=== PATIENT | male | born 1975 | race Caucasian/White ===

== ENCOUNTER 2020-11-08 14:37 | Outpatient (REF) | payer OTHER, SELFPAY | END 2020-11-08 14:38 | disposition home or self-care (01) | LOC: HO.HMGCLDS 14:37 | PROVIDERS: PCP Nurse Practitioner Family; Visit Provider Internal Medicine | DX: Z20.822 Contact with and (suspected) exposure to COVID-19 (principal) | CPT/HCPCS: 36415; C9803; U0003 ==

== ENCOUNTER 2021-05-06 14:00 | Outpatient (REF) | payer OTHER, SELFPAY ==
--- NOTE | ~2021-05-06 | XR_ITS ---
EXAMINATION: XR CHEST CLINICAL INFORMATION: Cough. COMPARISON: Chest 10/03/2019 TECHNIQUE: 2 views of the chest were obtained. FINDINGS: The lungs are hyperinflated but clear of acute pneumonic process. Heart size and pulmonary vascularity is normal. No gross bony abnormality seen. There are spinal stimulators in the mid thoracic spinal canal. XR/XR chest 2V IMPRESSION: Hyperinflated lungs without acute pneumonic process. No change from 10/03/2019.
== END 2021-05-06 14:01 | disposition home or self-care (01) ==
LOC: HO.HMGCX 14:00
PROVIDERS: PCP Nurse Practitioner Family; Visit Provider Nurse Practitioner Family
DX: R05 Cough (principal)
CPT/HCPCS: 71046

== ENCOUNTER 2021-05-20 | Outpatient (REF) | payer OTHER, SELFPAY | END 2021-05-20 00:01 | disposition home or self-care (01) | LOC: HO.LNP | PROVIDERS: Visit Provider Nurse Practitioner Family | DX: N48.9 Disorder of penis, unspecified (principal) | CPT/HCPCS: 87071; 87205; 87255 ==

== ENCOUNTER 2021-05-21 14:02 | Outpatient (REF) | payer OTHER, SELFPAY ==
[2021-05-21 17:04] LABS: Alanine Aminotransferase 18 U/L (0-40); Albumin Level 4.8 g/dL (3.5-5.0); Alkaline Phosphatase 63 U/L (39-117); Anion Gap 15 (12-20); Aspartate Amino Transferase 27 U/L (5-37); Bilirubin Total 0.4 mg/dL (0.0-1.0); Blood Urea Nitrogen 16 mg/dL (9-16); Calcium 9.6 mg/dL (8.4-10.2); Carbon Dioxide 26 mmol/L (22-29); Chloride 108 mmol/L (96-108); Cholesterol 170 mg/dL; Estimated Glomerular Filt Rate > 60; Glucose Fasting 120 mg/dL (60-99); HDL Cholesterol 67 mg/dL; LDL Cholesterol Calculated 95 mg/dl; Potassium 4.5 mmol/L (3.3-5.1); Sodium 144 mmol/L (135-145); Total Protein 7.6 g/dL (6.5-8.0); Triglycerides 43 mg/dL
[2021-05-21 17:26] LABS: TSH reflex Free T4 0.78 uIU/mL (0.32-4.0)
[2021-05-22 08:10] LABS: Syphilis Screen Nonreactive (Nonreactive)
[2021-05-22 09:07] LABS: CT PCR NOT DETECTED (Not Detect.); NG PCR NOT DETECTED (Not Detect.)
[2021-05-23 06:35] LABS: Herpes Simplex Type 1 IgG 3.15 index; Herpes Simplex Type 2 IgG 1.07 index
== END 2021-05-21 14:03 | disposition home or self-care (01) ==
LOC: HO.HMGCLDS 14:02
PROVIDERS: PCP Nurse Practitioner Family; Visit Provider Nurse Practitioner Family
DX: Z00.00 Encounter for general adult medical examination without abnormal findings (principal); Z11.3 Encounter for screening for infections with a predominantly sexual mode of transmission; N48.9 Disorder of penis, unspecified
CPT/HCPCS: 80053; 80061; 84443; 86695; 86696; 86780; 87491; 87591

== ENCOUNTER 2021-06-24 15:36 | Outpatient (REF) | payer OTHER, SELFPAY ==
--- NOTE | ~2021-06-24 | XR_ITS ---
EXAMINATION: XR FOOT, RIGHT CLINICAL INFORMATION: Foot pain. COMPARISON: None. TECHNIQUE: AP, lateral, and oblique views of the right foot. FINDINGS: [id number] 1st MTP arthritis. There are 2 calcifications/ossifications each measuring 8 mm in length, along the dorsal aspect of the distal metatarsals on the lateral projection, probably projected over the 1st metatarsal, which have a chronic appearance. There is a sclerotic focus in the 1st phalanx, nonspecific. This could represent a bone island. No visible acute fracture or dislocation. Tarsometatarsal alignment is within normal limits. XR/XR foot RT min 3V IMPRESSION: No radiographic evidence of acute fracture. Cmrq-gf-[id number] 1st MTP arthritis. Chronic-appearing ossification/calcifications in the dorsal forefoot, probably projected over the distal 1st metatarsal.
== END 2021-06-24 15:37 | disposition home or self-care (01) ==
LOC: HO.HMGCX 15:36
PROVIDERS: PCP Nurse Practitioner Family; Visit Provider Hospitalist
DX: Z13.89 Encounter for screening for other disorder (principal)
CPT/HCPCS: 73630

== ENCOUNTER 2022-01-23 14:14 | Outpatient (REF) | payer OTHER, SELFPAY ==
[2022-01-23 14:50] LABS: MANUAL DIFF FLAG NO
[2022-01-23 15:05] LABS: Basophils Absolute Auto 0.1 X10*3/uL (0.0-0.2); Eosinophils Absolute Auto 0.1 X10*3/uL (0.0-0.4); Eosinophils Percent Auto 1.6 % (0-4); Hematocrit 40.8 % (42.0-52.0); Imm Gran Abs Auto 0.01 X10*3/uL (0.00-0.03); Imm Gran Pct Auto 0.2 % (0.0-0.4); Lymphocytes Absolute Auto 1.7 X10*3/uL (1.2-4.9); Lymphocytes Percent Auto 34.6 % (20-40); Mean Corpuscular HGB Conc 34.3 g/dl (31.0-36.0); Mean Corpuscular Hemoglobin 32.7 pg (27.0-33.0); Mean Corpuscular Volume 95.3 fL (80.0-98.0); Mean Platelet Volume 10.5 fL (9.4-12.4); Monocytes Absolute Auto 0.3 X10*3/uL (0.1-1.2); Monocytes Percent Auto 6.7 % (2-11); Neutrophils Absolute Auto 2.8 x10*3/uL (2.0-8.3); Neutrophils Percent Auto 55.9 % (45-73); Platelet Count 188 X10*3/uL (160-400); Red Blood Count 4.28 X10*6/uL (4.60-5.80); Red Cell Distribution Width 12.7 % (11.0-16.0); White Blood Count 4.9 X10*3/uL (4.8-10.8)
[2022-01-23 15:46] LABS: Erythrocyte Sedimentation Rate 2 MM/HR (0-15)
[2022-01-23 15:50] LABS: Alanine Aminotransferase 27 U/L (0-40); Albumin Level 4.5 g/dL (3.5-5.0); Alkaline Phosphatase 60 U/L (39-117); Anion Gap 8 (12-20); Aspartate Amino Transferase 26 U/L (5-37); Bilirubin Total 0.8 mg/dL (0.0-1.0); Blood Urea Nitrogen 15 mg/dL (9-16); C Reactive Protein 0.08 mg/dL (< or = 0.50); Calcium 9.7 mg/dL (8.4-10.2); Carbon Dioxide 31 mmol/L (22-29); Chloride 102 mmol/L (96-108); Estimated Glomerular Filt Rate > 60; Glucose Random 83 mg/dL (60-115); Potassium 4.3 mmol/L (3.3-5.1); Sodium 137 mmol/L (135-145); Total Protein 7.1 g/dL (6.5-8.0)
[2022-01-24 08:01] LABS: HBc Num1 0.16 S/CO (0.00-0.79); HBsAGNum1 0.24 S/CO (0.00-0.99); HIV AB/AG Nonreactive (Nonreactive); HIV Num 1 0.06 S/CO (0.00-0.99); Hepatitis A Antibody IgM 0.26 Index (0-0.79); Hepatitis B Core Antibody Nonreactive (Nonreactive); Hepatitis B Surface Antigen Negative (Negative); ~Hepatitis A Antibody IgM Nonreactive (Nonreactive)
[2022-01-24 08:12] LABS: HBS Num1 11.49 mIU/mL (0-7.99); ~HepC Num1 0.17 S/CO (0.00-0.79); ~Hepatitis C Antibody Nonreactive (Nonreactive)
[2022-01-24 09:03] LABS: HBS Num2 11.83 mIU/mL (0-7.99); HBS Num3 10.65 mIU/mL (0-7.99); ~Hepatitis B Surface Antibody GRAYZONE (Nonreactive)
== END 2022-01-23 14:15 | disposition home or self-care (01) ==
LOC: HO.LAB 14:14
PROVIDERS: PCP Nurse Practitioner Family; Visit Provider Nurse Practitioner Family
DX: Z01.84 Encounter for antibody response examination (principal); Z11.4 Encounter for screening for human immunodeficiency virus [HIV]; R63.4 Abnormal weight loss
CPT/HCPCS: 36415; 80053; 85025; 85652; 86140; 86704; 86706; 86709; 86803; 87340; 87389

== ENCOUNTER 2022-04-04 20:49 | Emergency (ER) | payer OTHER, SELFPAY ==
[2022-04-04 21:26] VITALS: BP 147/96; PULSE 80; RESP 20; TEMP 37; O2SAT 98; BMI 21.1
--- NOTE | 2022-04-04 21:29 | ECG_ITS ---
Test Reason : CHEST PAIN Blood Pressure : / mmHG Vent. Rate : 079 BPM Atrial Rate : 079 BPM P-R Int : 138 ms QRS Dur : 136 ms QT Int : 400 ms P-R-T Axes : 080 114 056 degrees QTc Int : 458 ms Normal sinus rhythm Right bundle branch block Left posterior fascicular block Bifascicular block Abnormal ECG When compared with ECG of 03-OCT-2019 18:24, QT has shortened Referred By: Generic ED Physician Electronically Signed By:MICKY ROONEY
[2022-04-04 21:43] LABS: MANUAL DIFF FLAG NO
[2022-04-04 21:44] LABS: Basophils Percent Auto 0.4 % (0-2); Eosinophils Percent Auto 0.2 % (0-4); Hematocrit 42.4 % (42.0-52.0); Hemoglobin 14.5 g/dl (14.0-18.0); Imm Gran Abs Auto 0.03 X10*3/uL (0.00-0.03); Imm Gran Pct Auto 0.3 % (0.0-0.4); Lymphocytes Absolute Auto 1.4 X10*3/uL (1.2-4.9); Lymphocytes Percent Auto 15.6 % (20-40); Mean Corpuscular HGB Conc 34.2 g/dl (31.0-36.0); Mean Corpuscular Hemoglobin 31.6 pg (27.0-33.0); Mean Corpuscular Volume 92.4 fL (80.0-98.0); Mean Platelet Volume 9.8 fL (9.4-12.4); Monocytes Absolute Auto 0.5 X10*3/uL (0.1-1.2); Monocytes Percent Auto 5.7 % (2-11); Neutrophils Absolute Auto 7.1 x10*3/uL (2.0-8.3); Neutrophils Percent Auto 77.8 % (45-73); Platelet Count 309 X10*3/uL (160-400); Red Blood Count 4.59 X10*6/uL (4.60-5.80); Red Cell Distribution Width 12.4 % (11.0-16.0); White Blood Count 9.1 X10*3/uL (4.8-10.8)
[2022-04-04 21:57] LABS: Anion Gap 15 (12-20); Blood Urea Nitrogen 13 mg/dL (9-16); Calcium 9.9 mg/dL (8.4-10.2); Carbon Dioxide 28 mmol/L (22-29); Chloride 97 mmol/L (96-108); Creatinine Clr Calc Pharmacy 98.4; Estimated Glomerular Filt Rate > 60; Glucose Random 97 mg/dL (60-115); Sodium 136 mmol/L (135-145)
[2022-04-04 22:03] LABS: Troponin-I High Sensitivity 4.1 ng/L (<3.5-35.0)
[2022-04-04 22:16] LABS: COVID-19 Test Negative (Negative); IDNOW Serial# 55D5AD1C
--- NOTE | 2022-04-05 00:44 | PC.NURSE ---
Patient called x 5 total and patient not present.
== END 2022-04-05 01:13 | disposition left against medical advice (07) ==
PROVIDERS: Emergency Medicine Emergency Medical Services; Emergency Provider Emergency Medicine; PCP Nurse Practitioner Family
DX: R07.9 Chest pain, unspecified (principal); Z20.822 Contact with and (suspected) exposure to COVID-19
CPT/HCPCS: 36415; 80048; 84484; 85025; 87635; 93005; 99282; 99284

== ENCOUNTER 2022-05-05 14:39 | Outpatient (REF) | payer OTHER, SELFPAY | END 2022-05-05 14:40 | disposition home or self-care (01) | LOC: HO.CT 14:39 | PROVIDERS: PCP Nurse Practitioner Family; Visit Provider Internal Medicine Medical Oncology | DX: Z13.89 Encounter for screening for other disorder (principal) ==

== ENCOUNTER 2022-05-08 09:15 | Outpatient (REF) | payer OTHER, SELFPAY ==
--- NOTE | ~2022-05-08 | CT_ITS ---
EXAMINATION: CT CHEST WITH CONTRAST CLINICAL INFORMATION: Enlarged lymph node. COMPARISON: None TECHNIQUE: Multidetector volumetric CT imaging of the chest was obtained after the administration of 50 mL of Omnipaque 350 intravenous contrast without immediate adverse reactions. Axial MIP volume rendering provided. Sagittal and coronal reformatted images were obtained. This CT examination was performed using dose optimization techniques as appropriate, variously including the following: *Automated exposure control *Adjustment of mA and/or kV according to patient size (this includes techniques or standardized protocols for targeted exams where dose is matched to indication/reason for exam; i.e. extremities or head) *Use of iterative reconstruction technique DLP: 437 mGy-cm FINDINGS: SKID MAN: The lungs are symmetrically well-expanded and grossly clear. A spinal stimulator device is noted. LUNGS: There is mild lingular scar/subsegmental atelectasis. The lungs are otherwise clear with no evidence of inflammation or nodules. MEDIASTINUM: In the precarinal region (3:28), there is a nonpathologically enlarged lymph node, with short axis diameter of 7 mm. In the right hilar region (3:32), there is a 1.4 x 1.1 cm mildly enlarged lymph node. In the left hilar region (3:36), a nonpathologically enlarged lymph node is seen, with short axis diameter of 5 cm. No left hilar lymphadenopathy is seen. There is no thoracic aortic aneurysm or dissection. PLEURA: There is no pleural effusion. No pleural mass or thickening. AXILLA: No lymphadenopathy. OSSEOUS STRUCTURES: No acute or aggressive osseous abnormality is seen. CT/CT chest w con IMPRESSION: There is a nonspecific mildly enlarged right hilar lymph node. This could be secondary to infectious, inflammatory or neoplastic etiologies. This should be managed on a clinical basis. Consider follow-up CT imaging in 3-6 months to ensure stability/regression. Fleischner guidelines were followed.
--- NOTE | ~2022-05-08 | CT_ITS ---
EXAMINATION: CT ABDOMEN AND PELVIS WITH CONTRAST CLINICAL INFORMATION: Enlarged lymph node. COMPARISON: None TECHNIQUE: Multidetector volumetric images were obtained from the superior aspect of the liver through the pubic symphysis following administration 85 mL of Omnipaque 350 intravenous contrast. Sagittal and coronal reformatted images were obtained on the technologist's workstation. Oral contrast: No This CT examination was performed using dose optimization techniques as appropriate, variously including the following: *Automated exposure control *Adjustment of mA and/or kV according to patient size (this includes techniques or standardized protocols for targeted exams where dose is matched to indication/reason for exam; i.e. extremities or head) *Use of iterative reconstruction technique DLP: 437 mGy-cm FINDINGS: LIVER, GALLBLADDER, AND BILIARY TREE: The liver is normal in size, shape, and attenuation. No focal hepatic lesion or biliary ductal dilatation is present. The gallbladder is unremarkable with no evidence of radiopaque gallstones, gallbladder wall thickening, or obvious pericholecystic inflammatory changes. PANCREAS: Unremarkable. SPLEEN: Unremarkable. ADRENAL GLANDS: Unremarkable. KIDNEYS AND URETERS: The kidneys are normal in size, shape, and attenuation. No hydronephrosis, hydroureter, or calculi seen. At the upper pole of the right kidney (6:167), a 7 mm fat density lipoma is seen. No perinephric stranding. BLADDER: Unremarkable. GASTROINTESTINAL TRACT: The small and large bowel are unremarkable. The appendix is unremarkable. ABDOMINAL WALL: There is a very small fat-containing left inguinal hernia. LYMPH NODES: Normal. VASCULAR: There is mild aortoiliac atherosclerotic calcifications. No abdominal aortic aneurysm or dissection is seen. PELVIC VISCERA: The prostate and seminal vesicles are unremarkable. OSSEOUS STRUCTURES: There is a moderate lumbar levoscoliosis. There is degenerative disc disease and spondylosis extending from L2-L3 through L4-L5. There is a rightward L5 spondylolysis defect. No acute or aggressive osseous abnormality is seen. CT/CT abdomen pelvis w con IMPRESSION: 1. A 7 mm fat density lipoma is incidentally noted at the upper pole of the right kidney, new from prior. 2. There is a very small fat-containing left inguinal hernia. 3. No lymphadenopathy is seen. There is no ascites. 4. There is lumbar degenerative disc disease. A rightward L5 spondylolysis defect is seen. Fleischner guidelines were followed.
[2022-05-08] MEDS: iohexoL 350 MG/ML 100 ML INFUS..BTL 85 ML IV (12:02)
[2022-05-08] MEDS: Barium Sulfate Oral (Vanilla) 450 ML ORAL.SUSP 900 ML PO (12:02)
== END 2022-05-08 09:16 | disposition home or self-care (01) ==
LOC: HO.CT 09:15
PROVIDERS: PCP Nurse Practitioner Family; Visit Provider Internal Medicine Medical Oncology
DX: R59.1 Generalized enlarged lymph nodes (principal); R59.0 Localized enlarged lymph nodes
CPT/HCPCS: 71260; 74177; Q9967

== ENCOUNTER 2022-09-29 07:48 | Outpatient (REF) | payer OTHER, SELFPAY ==
--- NOTE | ~2022-09-29 | XR_ITS ---
EXAMINATION: XR HIP, BILATERAL CLINICAL INFORMATION: Pain. COMPARISON: CT abdomen of 05/08/2022. TECHNIQUE: AP pelvis and 2 views of each hip. FINDINGS: AP film of the pelvis does not demonstrate any evidence of acute fracture or diastasis. No evidence of fusion or widening of the sacroiliac joints. There appears to be some narrowing of the right sacroiliac joint with some mild sclerosis. Wires from a nerve stimulator are seen traversing superiorly. There is degenerative disc disease seen L4 through S1 with spina bifida occulta at L5 with appearance of right-sided spondylolysis. Two views of the right hip do not demonstrate any evidence of acute fracture or dislocation. Hip joint space is maintained. No flattening of the femoral head is seen. There is a small amount of calcification seen about the superior labrum. Two views of the left hip do not demonstrate any evidence of acute fracture or dislocation. Hip joint space is maintained. No significant spurring is appreciated. No destructive bony lesions are seen. Numerous sclerotic lesions are seen about the femoral head and neck consistent with bone islands. XR/XR hip LT min 2V IMPRESSION: Degenerative disc disease L4 through S1, as described. No significant hip abnormalities appreciated.
--- NOTE | ~2022-09-29 | XR_ITS ---
EXAMINATION: XR HIP, BILATERAL CLINICAL INFORMATION: Pain. COMPARISON: CT abdomen of 05/08/2022. TECHNIQUE: AP pelvis and 2 views of each hip. FINDINGS: AP film of the pelvis does not demonstrate any evidence of acute fracture or diastasis. No evidence of fusion or widening of the sacroiliac joints. There appears to be some narrowing of the right sacroiliac joint with some mild sclerosis. Wires from a nerve stimulator are seen traversing superiorly. There is degenerative disc disease seen L4 through S1 with spina bifida occulta at L5 with appearance of right-sided spondylolysis. Two views of the right hip do not demonstrate any evidence of acute fracture or dislocation. Hip joint space is maintained. No flattening of the femoral head is seen. There is a small amount of calcification seen about the superior labrum. Two views of the left hip do not demonstrate any evidence of acute fracture or dislocation. Hip joint space is maintained. No significant spurring is appreciated. No destructive bony lesions are seen. Numerous sclerotic lesions are seen about the femoral head and neck consistent with bone islands. XR/XR hip RT w PEL1V IMPRESSION: Degenerative disc disease L4 through S1, as described. No significant hip abnormalities appreciated.
--- NOTE | ~2022-09-29 | XR_ITS ---
EXAMINATION: XR KNEE AP STANDING CLINICAL INFORMATION: Right knee pain. COMPARISON: None. TECHNIQUE: AP bilateral standing view of the knees was obtained. FINDINGS: No acute fracture or dislocation of either knee identified on this AP standing view. The medial and lateral joint space compartments are maintained without significant spurring identified. Bone island is seen about the medial tibia. XR/XR knee standing BI IMPRESSION: No significant abnormality identified on AP standing view of both knees.
== END 2022-09-29 07:49 | disposition home or self-care (01) ==
LOC: HO.HOSX 07:48
PROVIDERS: Visit Provider Physician Assistant
DX: M25.552 Pain in left hip (principal); M25.561 Pain in right knee; M25.562 Pain in left knee; M76.899 Other specified enthesopathies of unspecified lower limb, excluding foot; Z79.899 Other long term (current) drug therapy
CPT/HCPCS: 73502; 73565; 99202

== ENCOUNTER 2022-12-10 13:30 | Outpatient (REF) | payer OTHER, SELFPAY ==
[2022-12-10 18:25] LABS: Influenza A PCR NEGATIVE (Negative); Influenza B PCR NEGATIVE (Negative); Resp Syncy Virus RNA Qual PCR NEGATIVE (Negative); SARS COV2 PCR INHOUSE NEGATIVE (Negative)
== END 2022-12-10 13:31 | disposition home or self-care (01) ==
LOC: HO.HMGCLDS 13:30
PROVIDERS: Internal Medicine; Visit Provider Nurse Practitioner Family
DX: Z20.822 Contact with and (suspected) exposure to COVID-19 (principal); R43.9 Unspecified disturbances of smell and taste
CPT/HCPCS: 0241U

== ENCOUNTER 2023-03-19 14:13 | Outpatient (REF) | payer OTHER, SELFPAY ==
[2023-03-19 16:40] LABS: MANUAL DIFF FLAG NO
[2023-03-19 16:43] LABS: Basophils Percent Auto 0.6 % (0-2); Eosinophils Percent Auto 0.3 % (0-4); Hematocrit 44.8 % (42.0-52.0); Hemoglobin 15.3 g/dl (14.0-18.0); Imm Gran Abs Auto 0.01 X10*3/uL (0.00-0.03); Imm Gran Pct Auto 0.2 % (0.0-0.4); Lymphocytes Absolute Auto 1.1 X10*3/uL (1.2-4.9); Mean Corpuscular HGB Conc 34.2 g/dl (31.0-36.0); Mean Corpuscular Hemoglobin 32.5 pg (27.0-33.0); Mean Corpuscular Volume 95.1 fL (80.0-98.0); Mean Platelet Volume 10.5 fL (9.4-12.4); Monocytes Absolute Auto 0.6 X10*3/uL (0.1-1.2); Neutrophils Absolute Auto 4.7 x10*3/uL (2.0-8.3); Neutrophils Percent Auto 72.9 % (45-73); Platelet Count 260 X10*3/uL (160-400); Red Blood Count 4.71 X10*6/uL (4.60-5.80); Red Cell Distribution Width 12.3 % (11.0-16.0); White Blood Count 6.4 X10*3/uL (4.8-10.8)
[2023-03-19 16:47] LABS: Appearance Urine Clear; Color Urine Yellow; Glucose Urine UA Negative (Negative); Leukocyte Esterase Urine Negative (Negative); Nitrite Urine Negative (Negative); PH 5.5 (5.0-9.0); Specific Gravity - Urine <= 1.005 (1.005-1.025); Urine Blood Negative (Negative); Urine Ketones Negative (Negative); Urine Protein Negative (Neg-Trace)
[2023-03-19 18:03] LABS: Alanine Aminotransferase 26 U/L (0-40); Albumin Level 4.6 g/dL (3.5-5.0); Alkaline Phosphatase 63 U/L (39-117); Anion Gap 17 (12-20); Aspartate Amino Transferase 36 U/L (5-37); Blood Urea Nitrogen 9 mg/dL (9-16); Calcium 9.4 mg/dL (8.4-10.2); Carbon Dioxide 27 mmol/L (22-29); Chloride 100 mmol/L (96-108); Cholesterol 211 mg/dL; Estimated Glomerular Filt Rate > 60; Glucose Fasting 92 mg/dL (60-99); HDL Cholesterol 119 mg/dL; LDL Cholesterol Calculated 81 mg/dl; Potassium 3.9 mmol/L (3.3-5.1); Sodium 140 mmol/L (135-145); Total Protein 7.5 g/dL (6.5-8.0); Triglycerides 57 mg/dL
[2023-03-19 18:17] LABS: TSH reflex Free T4 0.58 uIU/mL (0.32-4.0)
== END 2023-03-19 14:14 | disposition home or self-care (01) ==
LOC: HO.HMGCLDS 14:13
PROVIDERS: PCP Nurse Practitioner Family; Visit Provider Nurse Practitioner Family
DX: I10 Essential (primary) hypertension (principal)
CPT/HCPCS: 36415; 80053; 80061; 81003; 84443; 85025

== ENCOUNTER 2023-08-14 13:48 | Outpatient (AMB) | payer OTHER, SELFPAY ==
[2023-08-14 14:29] VITALS: BP 130/86; PULSE 67; TEMP 36.9; O2SAT 96; BMI 23.7
--- NOTE | 2023-08-14 14:29 | AM.OFFWIN_ITS ---
Intake Vital Signs 08/14/23 14:29 Height 5 ft 10 in Weight 165 lb BMI 23.7 BP 130/86 Blood Pressure Location Lt brachial Position Sitting Pulse 67 Pulse Source Pulse Oximeter Temp 98.4 F Temp Source Temporal Artery Scan Pulse Oximetry (%) 96 Oxygen Delivery Method Room Air Intake Visit Reasons: fall, left rib fracture? [phone] Intake Note: pt is here for c/o left rib pain, possible fracture due to fall on stairs 3 days ago Patient Tobacco Use Status: Former Tobacco user Allergies codeine [CODEINE] Allergy (Intermediate, Verified 08/14/23 14:30) RASH morphine [MORPHINE] Allergy (Intermediate, Verified 08/14/23 14:30) HIVES, rash lamotrigine [Lamictal] Allergy (Unknown, Verified 08/14/23 14:30) hives quetiapine [Seroquel] Allergy (Unknown, Verified 08/14/23 14:30) lack jaw ANTIPSYCHOTICS Allergy (Unknown, Uncoded 12/10/22 12:41) DYSTONIA Codeine Allergy (Unknown, Uncoded 12/10/22 12:41) Hives atypical anti-psychotics Adverse Reaction (Unknown, Uncoded 12/10/22 12:41) lock jaw Do you need a note to return to daycare/school/sports/work: Yes HPI fall, left rib fracture? [phone] HPI Details 48-year-old male presents to the office a sick visit. Patient reports that he slipped and fell while climbing his stairs at home. He fell hard on the top stair. He is complaining of sharp pain below his coastal margin on the left side. Patient is on disability for chronic pain. FORMERLY [facility] Medical History Nerve root compression Sleep apnea Surgical History H/O left wrist surgery H/O spinal fusion S/P insertion of spinal cord stimulator Family History Father Diabetes Hypertension Pancreatic cancer Lung cancer Mother Pulmonary embolism Social History Household Members: Spouse and Family Housing: House Are you a primary resident care aide to a significant other at home: No Do you presently have visiting nurse or other home services: No Alcohol intake: never Patient Tobacco Use Status: Former Tobacco user Years Smoked: 4 years ago e-Cigarette/Vaping Use: Currently Using Second Hand Smoke Exposure: Yes Substance Use Type: Marijuana service: No Current occupational status: disabled Current occupation: Right handed. Cognitive needs: No Hearing needs: No Vision needs: No Physical Exam Vital Signs: Last Vital Signs Temp 98.4 F 08/14/23 14:29 Pulse 67 08/14/23 14:29 BP 130/86 08/14/23 14:29 Pulse Ox 96 08/14/23 14:29 Oxygen Delivery Method Room Air 08/14/23 14:29 BMI result Body Mass Index 23.7 Const General: cooperative and healthy appearing Nutritional Appearance: well nourished Orientation/consciousness: patient oriented x3 Limitations: no limitations HEENT Head: Yes normal to inspection Eyes General: appearance normal, both eyes and all related structures Neck Neck: Yes normal visual inspection Chest Other: Chest: No visible bruising. Minimal discomfort on palpation over the 12th rib, costal margin. Breath sounds are heard bilaterally. Chest palpation & inspection: normal palpation of entire chest wall Resp Effort & Inspection: normal respiratory effort Neuro General: patient oriented x3 Assessment & Plan Assessment & Plan (1) Contusion of rib on left side: Code(s): S20.212A - Contusion of left front wall of thorax, initial encounter Plan X-ray images were personally reviewed by me. No fractures seen. Patient was reassured. Orders: Orders XR ribs LT min 3V w CXR1V Today S20.212A - Contusion of left front wall of thorax, initial encounter Coding Level of Care Code Est Pt Level 4 (79327) Diagnoses Contusion of rib on left side S20.212A
== END 2023-08-14 15:25 | disposition home or self-care (01) ==
PROVIDERS: PCP Nurse Practitioner Family; Visit Provider Internal Medicine
DX: S20.212A Contusion of left front wall of thorax, initial encounter (principal)
CPT/HCPCS: 99214

== ENCOUNTER 2023-08-14 14:59 | Outpatient (REF) | payer OTHER, SELFPAY ==
--- NOTE | ~2023-08-14 | XR_ITS ---
EXAMINATION: XR RIBS, LEFT CLINICAL INFORMATION: Contusion of left wall of the thorax. COMPARISON: CT chest 05/08/2022. Chest radiograph 05/06/2021. TECHNIQUE: 3 views of the left ribs were obtained. FINDINGS: Normal appearance of the cardiomediastinal silhouette. No new focal airspace opacity. No pleural effusion or pneumothorax. No evidence of displaced rib fractures. Neurostimulator leads projecting over the mid thoracic spine. XR/XR ribs LT min 3V w CXR1V IMPRESSION: 1. No acute cardiopulmonary findings. 2. No evidence of displaced rib fractures.
== END 2023-08-14 15:00 | disposition home or self-care (01) ==
LOC: HO.HMGCX 14:59
PROVIDERS: PCP Nurse Practitioner Family; Visit Provider Internal Medicine
DX: S20.212A Contusion of left front wall of thorax, initial encounter (principal); X58.XXXA Exposure to other specified factors, initial encounter; Y93.9 Activity, unspecified; Y92.9 Unspecified place or not applicable; Y99.9 Unspecified external cause status
CPT/HCPCS: 71101

== ENCOUNTER 2024-05-17 07:42 | Outpatient (AMB) | payer OTHER, SELFPAY ==
[2024-05-17 07:45] VITALS: BP 134/98; PULSE 82; O2SAT 94; BMI 24.7
--- NOTE | 2024-05-17 07:45 | A.OFFPC_ITS ---
Vital Signs 05/17/24 07:45 05/17/24 08:12 Height 5 ft 10 in Weight 172 lb BMI 24.7 BP 134/98 H 130/88 Blood Pressure Location Lt brachial Rt brachial Position Sitting Sitting Pulse 82 Pulse Oximetry (%) 94 Oxygen Delivery Method Room Air Intake Visit Reasons: PE Allergies codeine [CODEINE] Allergy (Intermediate, Verified 05/17/24 07:47) RASH morphine [MORPHINE] Allergy (Intermediate, Verified 05/17/24 07:47) HIVES, rash lamotrigine [Lamictal] Allergy (Unknown, Verified 05/17/24 07:47) hives quetiapine [Seroquel] Allergy (Unknown, Verified 05/17/24 07:47) lack jaw ANTIPSYCHOTICS Allergy (Unknown, Uncoded 05/17/24 07:47) DYSTONIA Codeine Allergy (Unknown, Uncoded 05/17/24 07:47) Hives atypical anti-psychotics Adverse Reaction (Unknown, Uncoded 05/17/24 07:47) lock jaw Medication List - Last Reconciled 05/17/24 [facility] buprenorphine-naloxone 8-2 mg 30 mg sublingual DAILY gabapentin 600 mg PO QID 30 days hydrochlorothiazide 25 mg PO DAILY 90 days ibuprofen 800 mg PO TID PRN metoprolol succinate ER 50 mg PO DAILY nitroglycerin 0.4 mg sublingual DIRECTED sildenafil 25 mg PO DAILY PRN temazepam 30 mg PO BEDTIME PRN 30 days tizanidine 4 mg PO TID PRN 90 days Tobacco use date assessed: 05/17/24 Dental Screening Dental Screen Date: 05/17/24 Did you have a dental visit in the last 12 months?: Yes Did you have a dental problem in the last 6 months where you did not have access to dental care?: No Was dental information given to patient?: Patient has dentist HPI PE HPI Details Pt is here for a PE. Will order labs. Pt had a cologuard kit but lost it, will reorder. Pt has a family hx of pancreatic cancer (father). Will order CA 19-[address] of abdomen (can not have MRIs due to spinal stimulator). Pt also has a family hx of prostate cancer (uncle). Will order PSA. Pt's blood pressure is elevated today. He reports that it is stable at home under 140/90. Pt has a hx of chronic back pain, has a spinal stimulator. He is looking at possibly having this removed. COUNTS INCLUDE 234 BEDS AT THE [facility] Medical History Sleep apnea Nerve root compression Surgical History S/P insertion of spinal cord stimulator H/O left wrist surgery H/O spinal fusion Family History Father Diabetes Hypertension Pancreatic cancer Lung cancer Mental health disorder Mother Pulmonary embolism Mental health disorder Paternal Uncle Substance use disorder Sister Substance use disorder Social History Household Members: Spouse and Family Housing: House Are you a primary home care aide to a significant other at home: No Do you presently have visiting nurse or other home services: No Alcohol intake: never Patient Tobacco Use Status: Former Tobacco user Years Smoked: 4 years ago e-Cigarette/Vaping Use: Currently Using Second Hand Smoke Exposure: Yes Substance Use Type: Marijuana service: No Current occupational status: disabled Current occupation: Right handed. Cognitive needs: No Hearing needs: No Vision needs: No Questionnaire PHQ-9 Over the last 2 weeks, how often have you been bothered by any of the following problems? 1. Little interest or pleasure in doing things: several days 2. Feeling down, depressed, or hopeless: several days 3. Trouble falling or staying asleep, or sleeping too much: several days 4. Feeling tired or having little energy: not at all 5. Poor appetite or overeating: not at all 6. Feeling bad about yourself - or that you are a failure or have let yourself or your family down: not at all 7. Trouble concentrating on things, such as reading the newspaper or watching television: not at all 8. Moving or speaking so slowly that other people could have noticed. Or the opposite - being so fidgety or restless that you have been moving around a lot m ore than usual: not at all 9. Thoughts that you would be better off or of hurting yourself in some way: not at all Total score: 3 Depression Screening Interpretation: Negative Depression Screening Done: Yes 50371 - PHQ-9 Billing: Yes Source: Developed by Drs. Milo Odonnell, Nahed Da Silva, Deshawn Duarte and colleagues, with an educational natty from [employer]. Thrive Questionnaire Date Thrive assessed: 05/17/24 I am a: Patient What is your living situation today?: I have a steady place to live Within the past 12 months, did the food you bought not last and you didn't have the money to get more?: Never true Within the past 12 months, did you worry whether your food would run out before you got money to buy more?: Never true Do you have trouble paying for medicines?: No Do you have trouble getting transportation to medical appointments?: No Do you have trouble paying your heating and electricity bill?: No Do you have trouble taking care of your child, family member or friend?: No Do you have trouble with day-to-day activities such as bathing, preparing meals, shopping, managing finances, etc.?: No Are you currently unemployed and looking for a job?: No Are you interested in more education?: No THRIVE Score: 0 AUDIT C Alcohol Use Questionnaire (AUDIT-C) 1. How often do you have a drink containing alcohol?: Never Total Score: 0 LEFTY-7 AMB Questionnaire LEFTY-7 Date LEFTY - 7 assessed: 05/17/24 Feeling nervous, anxious, or on edge: 1 = Several days Not being able to stop or control worryin = Several days Worrying too much about different things: 1 = Several days Trouble relaxin = Not at all Being so restless that it is hard to sit still: 0 = Not at all Becoming easily annoyed or irritable: 0 = Not at all Feeling afraid as if something awful might happen: 0 = Not at all Total LEFTY-7 score (0-4 normal; 5-9 mild; 10-14 moderate; 15-21 severe): 3 Source: Developed by Drs. Milo Odonnell, Deshawn Caceres and colleagues, with an educational natty from [employer]. LEFTY-7 Assessment Billing LEFTY-7 Assessment Tool: LEFTY-7 Assessment 76862 Review of Systems Const Denies chills and Denies fever(s) Eyes Denies blurry vision ENT Denies vertigo, Denies dizziness and Denies sore throat Card Denies chest pain at rest, Denies chest pain with activity, Denies diaphoresis, Denies dyspnea and Denies dyspnea on exertion Resp Denies cough, Denies dyspnea, Denies dyspnea on exertion and Denies wheezing GI Denies abdominal pain, Denies melena, Denies hematochezia, Denies constipation, Denies diarrhea and Denies loose stools Denies hematuria Musc Denies numbness and Denies tingling Skin/Breast Denies lesions Neuro Denies vertigo, Denies dizziness, Denies numbness and Denies tingling Psych Denies anxiety, Denies depression, Denies homicidal ideation, Denies suicidal ideation and Denies other (substance abuse) Aller/Immun Denies wheezing Physical exam (Primary Care) Vital Signs: Last Vital Signs Pulse 82 05/17/24 07:45 BP 134/98 H 05/17/24 07:45 Pulse Ox 94 05/17/24 07:45 Oxygen Delivery Method Room Air 05/17/24 07:45 BMI result Body Mass Index 24.7 Tobacco/Smoking Status: Tobacco use Status Tobacco use date assessed 05/17/24 05/17/24 07:51 Patient Tobacco Use Status Former Tobacco user 05/17/24 07:51 e-Cigarette/Vaping Use Currently Using 05/17/24 07:51 PHQ-9: PHQ-9 Score PHQ-9: Total score 3 05/17/24 07:57 Depression Screening Interpretation: Negative Thrive Assessment: Date of Thrive Assessment Date Thrive assessed 05/17/24 05/17/24 07:53 Const General: cooperative Nutritional Appearance: well nourished Orientation/consciousness: patient oriented x3 HENMT Head: Yes normal to inspection, Yes normocephalic and Yes atraumatic Ears: TM's normal bilaterally Eyes Other: ecchymosis to right orbital, fading, no signs of cellulitis General: appearance normal, both eyes and all related structures Alignment and Position: alignment normal and position normal Neck Neck: Yes normal visual inspection and Yes no lymphadenopathy Thyroid: Thyroid normal Resp Effort & Inspection: normal respiratory effort Auscultation: clear to auscultation bilaterally Cardio Rate: regular rate Rhythm: regular rhythm Heart sounds: S1 normal heart sound present, S2 normal heart sound present and no murmurs GI Palpation (GI): Soft to palpation and nontender Auscultation: normal bowel sounds Male General Exam: Yes normal external exam Penis: normal penis Scrotum: scrotum normal, testes descended bilaterally and no inguinal hernias Testes: no testicular mass Skin Rashes: no rashes Neuro General: patient oriented x3, moves all extremities, no focal motor deficits and deep tendon reflexes 2+ bilaterally Romberg Test: Negative Psych Appearance: grossly normal Mental Status: mental status grossly normal Speech and movement: Normal speech and movement present Affect: normal affect Attitude: cooperative Thought process: Normal thought process present Thought content: Normal thought content present Insight: Good insight present (Psych) Judgement: Good judgement present (Psych) Assessment and Plan Assessment & Plan (1) Family history of pancreatic cancer: Code(s): Z80.0 - Family history of malignant neoplasm of digestive organs Plan: CA 19-9 ordered, CT ordered (cannot have MRIs due to spinal stimulator) (2) Family hx of prostate cancer: Code(s): Z80.42 - Family history of malignant neoplasm of prostate Plan: PSA ordered Plan The patient agreed to the use of a medical front desk specialist for this encounter. Scribed for CAROLINA Perez-BC by Gloria Boss medical front desk specialist, on 05/17/2024 at 07:55 EST. Orders: Orders Complete Blood Count Auto Diff Today Z00.01 - Encounter for general adult medical examination with abnormal findings Comprehensive [place]. Panel Fast Today Z00.01 - Encounter for general adult medical examination with abnormal findings Lipid Panel Today Z00.01 - Encounter for general adult medical examination with abnormal findings Carbohydrate Antigen 19-9 Today Z80.0 - Family history of malignant neoplasm of digestive organs TSH reflex Free T4 Today Z00.01 - Encounter for general adult medical examination with abnormal findings UA CC w/rflx Micro + Cult Today Z00.01 - Encounter for general adult medical ex amination with abnormal findings CT abdomen w IV con Today Z80.0 - Family history of malignant neoplasm of digestive organs Prostate Specific Antigen Scr Today Z80.42 - Family history of malignant neoplasm of prostate Referrals Cologuard Test Z12.11 - Encounter for screening for malignant neoplasm of colon, Z12.12 - Encounter for screening for malignant neoplasm of rectum Coding Level of Care Code Est Pt Level 3 (93896) Est Pt Prev Care 40-64y(73689) Diagnoses Family history of pancreatic cancer Z80.0 Family hx of prostate cancer Z80.42 Additional Codes LEFTY-7 Assessment Billing - LEFTY-7 Assessment Tool: LEFTY-7 Assessment 78738 ([id number])
[2024-05-17 08:12] VITALS: BP 130/88
== END 2024-05-17 08:17 | disposition home or self-care (01) ==
PROVIDERS: PCP Nurse Practitioner Family; Visit Provider Nurse Practitioner Family
DX: Z00.00 Encounter for general adult medical examination without abnormal findings (principal); Z80.0 Family history of malignant neoplasm of digestive organs; Z80.42 Family history of malignant neoplasm of prostate
CPT/HCPCS: 99396

== ENCOUNTER 2024-11-16 10:12 | Outpatient (AMB) | payer OTHER, SELFPAY ==
[2024-11-16 10:17] VITALS: BP 132/86; PULSE 86; O2SAT 97; BMI 25.3
--- NOTE | 2024-11-16 10:17 | A.OFFPC_ITS ---
Vital Signs 11/16/24 10:17 Height 5 ft 10 in Weight 176 lb 6 oz BMI 25.3 BP 132/86 Blood Pressure Location Lt brachial Position Sitting Pulse 86 Pulse Source Pulse Oximeter Pulse Oximetry (%) 97 Intake Visit Reasons: 6 month follow up Intake Note: pt is here for 6 mon f/up Clinical Staff Anesthesiologist Required: No Accompanied by: Self / Same As Patient Allergies codeine [CODEINE] Allergy (Intermediate, Verified 11/16/24 10:18) RASH morphine [MORPHINE] Allergy (Intermediate, Verified 11/16/24 10:18) HIVES, rash lamotrigine [Lamictal] Allergy (Unknown, Verified 11/16/24 10:18) hives quetiapine [Seroquel] Allergy (Unknown, Verified 11/16/24 10:18) lack jaw ANTIPSYCHOTICS Allergy (Unknown, Uncoded 05/17/24 07:47) DYSTONIA Codeine Allergy (Unknown, Uncoded 05/17/24 07:47) Hives atypical anti-psychotics Adverse Reaction (Unknown, Uncoded 05/17/24 07:47) lock jaw Medication List - Last Reconciled 11/16/24 by Diogo Brush, [employer]- amoxicillin-pot clavulanate 875-125 mg 1 tab PO BID 10 days buprenorphine-naloxone 8-2 mg 30 mg sublingual DAILY gabapentin 600 mg PO QID 30 days hydrochlorothiazide 25 mg PO DAILY 90 days ibuprofen 800 mg PO TID PRN metoprolol succinate ER 50 mg PO DAILY nicotine (polacrilex) 4 mg buccal Q2H nitroglycerin 0.4 mg sublingual DIRECTED sildenafil 25 mg PO DAILY PRN temazepam 30 mg PO BEDTIME PRN 30 days tizanidine 4 mg PO TID PRN 90 days Tobacco use date assessed: 11/16/24 Dental Screening Dental Screen Date: 11/16/24 Did you have a dental visit in the last 12 months?: Yes Did you have a dental problem in the last 6 months where you did not have access to dental care?: No Was dental information given to patient?: Patient has dentist HPI 6 month follow up HPI Details Chief Complaint The patient presents for a six-month follow-up and evaluation of an unresolved dental abscess. History of Present Illness The patient is a 49-year-old male presenting with a dental abscess and hiler lymphadenopathy. During the previous visit, a chest CT was ordered due to observed hyler lymphadenopathy, but the patient did not undergo the imaging. The patient reports no current symptoms of chest pain, shortness of breath, fevers, or chills. Regarding the dental abscess, it is localized to the left upper region, which has been associated with some tenderness, although no drainage is currently observed. The patient is experiencing decay to the left upper molar and is scheduled to consult with a dentist next month. Social History Health Maintenance - Chest CT was initially recommended and ordered for evaluation of hyler lymphadenopathy. Review of Systems - Respiratory: Denies chest pain, shortn ess of breath. - Constitutional: Denies fevers, chills. Physical Exam General: Cooperative, healthy appearing, comfortable, no acute distress and well developed Orientation: Patient oriented x3 Limitations: No limitations Head: Normal to inspection Ears: Hearing grossly normal bilaterally Nose: Normal external nose present Face and sinus: Normal facial exam Eyes: Appearance normal, both eyes and all related structures Neck: Normal visual inspection and Yes full ROM Respiratory: Normal respiratory effort and able to speak in complete sentences. Clear to auscultation bilaterally Cardiovascular: Regular rate and rhythm. Normal S1 and S2 GI: Normal to inspection. Soft to palpation and nontender Skin: No rashes or lesions noted Neuro: Patient oriented x3 Extremities: Normal to inspection Results Plan - Repeated a chest CT order due to previ ous non-compliance. - Initiated Augmentin for treatment of t he dental abscess. - Recommended the patient complete pendi ng imaging and dental evaluation. Patient was informed and verbally consented to the use of an ambient scribe for clinic note documentation during this visit. Discussion Notes I discussed the importance of completing the chest CT to further evaluate the hyler lymphadenopathy, as it is crucial for ruling out potential serious conditions. I emphasized the necessity of starting antibiotics immediately for the dental abscess to prevent worsening before his dental appointment next month. Risks of untreated dental abscess, including potential spread of infection, were reviewed. The patient was counseled on completing imaging and dental follow-up as scheduled. Patient Instructions - Take prescribed Augmentin as directed to address the dental abscess. - Ensure to schedule and complete chest CT as soon as possible. - Follow up with dental care provider ne xt month for further assessment and ma nagement of the dental abscess. - Seek care if experiencing increased pa in, fever, or swelling. [facility] Medical History Sleep apnea Nerve root compression Surgical History S/P insertion of spinal cord stimulator H/O left wrist surgery H/O spinal fusion Family History Father Diabetes Hypertension Pancreatic cancer Lung cancer Mental health disorder Mother Pulmonary embolism Mental health disorder Paternal Uncle Substance use disorder Sister Substance use disorder Social History Household Members: Spouse and Family Housing: House Are you a primary healthcare facility administrator to a significant other at home: No Do you presently have visiting nurse or other home services: No Alcohol intake: never Patient Tobacco Use Status: Former Tobacco user Years Smoked: 4 years ago e-Cigarette/Vaping Use: Currently Using Second Hand Smoke Exposure: Yes Substance Use Type: Marijuana service: No Current occupational status: disabled Current occupation: Right handed. Cognitive needs: No Hearing needs: No Vision needs: No Questionnaire PHQ-9 Over the last 2 weeks, how often have you been bothered by any of the following problems? 1. Little interest or pleasure in doing things: more than half the days 2. Feeling down, depressed, or hopeless: more than half the days 3. Trouble falling or staying asleep, or sleeping too much: more than half the days 4. Feeling tired or having little energy: nearly every day 5. Poor appetite or overeating: more than half the days 6. Feeling bad about yourself - or that you are a failure or have let yourself or your family down: several days 7. Trouble concentrating on things, such as reading the newspaper or watching television: more than half the days 8. Moving or speaking so slowly that other people could have noticed. Or the opposite - being so fidgety or restless that you have been moving around a lot more than usual: more than half the days 9. Thoughts that you would be better off or of hurting yourself in some way: not at all Total score: 16 Depression Screening Interpretation: Positive (denies any si or hi) Depression Screening Follow-up: Existing condition and Declines treatment Depression Screening Done: Yes 01463 - PHQ-9 Billing: Yes Source: Developed by Drs. Milo Odonnell, Nahed Da Silva, Deshawn Duarte and colleagues, with an educational natty from [employer]. Thrive Questionnaire Date Thrive assessed: 11/16/24 I am a: Patient What is your living situation today?: I have a steady place to live Within the past 12 months, did the food you bought not last and you didn't have the money to get more?: Sometimes True Within the past 12 months, did you worry whether your food would run out before you got money to buy more?: Sometimes True Do you have trouble paying for medicines?: Yes Do you have trouble getting transportation to medical appointments?: No Do you have trouble paying your heating and electricity bill?: Yes Do you have trouble taking care of your child, family member or friend?: No Do you have trouble with day-to-day activities such as bathing, preparing meals, shopping, managing finances, etc.?: Yes Are you currently unemployed and looking for a job?: No Are you interested in more education?: I choose not to answer this question Please select the resources that you would like help with: Food and None Currently or been in a relationship where the following occur: No concerns reported THRIVE Score: 3 AUDIT C Alcohol Use Questionnaire (AUDIT-C) 1. How often do you have a drink containing alcohol?: Never 3. How often do you have six or more drinks on one occasion?: Never Total Score: 0 Score Reviewed/Action Taken: Yes LEFTY-7 AMB Questionnaire LEFTY-7 Date LEFTY - 7 assessed: 11/16/24 Feeling nervous, anxious, or on edge: 1 = Several days Not being able to stop or control worryin = Several days Worrying too much about different things: 1 = Several days Trouble relaxin = Several days Being so restless that it is hard to sit still: 1 = Several days Becoming easily annoyed or irritable: 3 = Nearly every day Feeling afraid as if something awful might happen: 1 = Several days Total LEFTY-7 score (0-4 normal; 5-9 mild; 10-14 moderate; 15-21 severe): 9 Source: Developed by Nahed Sharma Kurt Kroenke and colleagues, with an educational natty from [employer]. LEFTY-7 Assessment Billing LEFTY-7 Assessment Tool: LEFTY-7 Assessment 78924 Physical exam (Primary Care) Vital Signs: Last Vital Signs Pulse 86 11/16/24 10:17 BP 132/86 11/16/24 10:17 Pulse Ox 97 11/16/24 10:17 BMI result Body Mass Index 25.3 Tobacco/Smoking Status: Tobacco use Status Tobacco use date assessed 11/16/24 11/16/24 10:19 Patient Tobacco Use Status Former Tobacco user 11/16/24 10:19 e-Cigarette/Vaping Use Currently Using 11/16/24 10:19 PHQ-9: PHQ-9 Score PHQ-9: Total score 16 11/16/24 10:19 Depression Screening Interpretation: Positive (denies any si or hi) Depression Screening Follow-up: Existing condition and Declines treatment Thrive Assessment: Date of Thrive Assessment Date Thrive assessed 11/16/24 11/16/24 10:19 Currently or been in a relationship where the following occur: No concerns reported Coding Level of Care Code Est Pt Level 3 (50083) Diagnoses Hilar lymphadenopathy R59.0 Additional Codes LEFTY-7 Assessment Billing - LEFTY-7 Assessment Tool: LEFTY-7 Assessment 58901 ([id number]) PHQ-9 - 04701 - PHQ-9 Billing: Yes ([id number]) Assessment & Plan Assessment & Plan (1) Hilar lymphadenopathy: Code(s): R59.0 - Localized enlarged lymph nodes Category: Medical Plan . Orders: Referrals Cologuard Test Z12.11 - Encounter for screening for malignant neoplasm of colon, Z12.12 - Encounter for screening for malignant neoplasm of rectum Medications: New amoxicillin-pot clavulanate 875-125 mg 1 tab PO BID 10 days 20 tabs 0RF
== END 2024-11-16 10:52 | disposition home or self-care (01) ==
PROVIDERS: PCP Nurse Practitioner Family; Visit Provider Nurse Practitioner Family
DX: R59.0 Localized enlarged lymph nodes (principal)

== ENCOUNTER 2024-11-16 10:12 | Outpatient (REF) | payer OTHER, SELFPAY ==
[2024-11-16 13:18] LABS: Appearance Urine Clear; Color Urine Yellow; Glucose Urine UA Negative (Negative); Leukocyte Esterase Urine Negative (Negative); Nitrite Urine Negative (Negative); PH 5.5 (5.0-9.0); Urine Blood Negative (Negative); Urine Ketones Negative (Negative); Urine Protein Negative (Neg-Trace)
[2024-11-16 13:39] LABS: MANUAL DIFF FLAG NO
[2024-11-16 14:00] LABS: Basophils Absolute Auto 0.1 X10*3/uL (0.0-0.2); Eosinophils Absolute Auto 0.1 X10*3/uL (0.0-0.4); Eosinophils Percent Auto 1.1 % (0-4); Hematocrit 44.7 % (42.0-52.0); Imm Gran Abs Auto 0.01 X10*3/uL (0.00-0.03); Imm Gran Pct Auto 0.2 % (0.0-0.4); Lymphocytes Absolute Auto 1.3 X10*3/uL (1.2-4.9); Lymphocytes Percent Auto 25.7 % (20-40); Mean Corpuscular HGB Conc 33.6 g/dl (31.0-36.0); Mean Corpuscular Hemoglobin 31.4 pg (27.0-33.0); Mean Corpuscular Volume 93.7 fL (80.0-98.0); Mean Platelet Volume 10.6 fL (9.4-12.4); Monocytes Absolute Auto 0.5 X10*3/uL (0.1-1.2); Monocytes Percent Auto 9.2 % (2-11); Neutrophils Absolute Auto 3.3 x10*3/uL (2.0-8.3); Neutrophils Percent Auto 62.8 % (45-73); Platelet Count 246 X10*3/uL (160-400); Red Blood Count 4.77 X10*6/uL (4.60-5.80); Red Cell Distribution Width 12.3 % (11.0-16.0); White Blood Count 5.2 X10*3/uL (4.8-10.8)
[2024-11-16 14:21] LABS: Alanine Aminotransferase 25 U/L (0-40); Albumin Level 4.8 g/dL (3.5-5.0); Alkaline Phosphatase 52 U/L (39-117); Anion Gap 10 (12-20); Aspartate Amino Transferase 37 U/L (5-37); Bilirubin Total 0.4 mg/dL (0.0-1.0); Blood Urea Nitrogen 18 mg/dL (9-16); Calcium 9.8 mg/dL (8.4-10.2); Carbon Dioxide 32 mmol/L (22-29); Chloride 99 mmol/L (96-108); Cholesterol 222 mg/dL (<200); Estimated Glomerular Filt Rate > 60; Glucose Fasting 108 mg/dL (60-99); HDL Cholesterol 88 mg/dL (>40); LDL Cholesterol Calculated 118 mg/dL (<100); Potassium 3.8 mmol/L (3.3-5.1); Sodium 137 mmol/L (135-145); Total Protein 8.2 g/dL (6.5-8.0); Triglycerides 83 mg/dL (<150)
[2024-11-16 14:25] LABS: TSH reflex Free T4 2.44 uIU/mL (0.32-4.0)
[2024-11-16 14:36] LABS: Prostate Specific Antigen Scr 0.26 ng/mL (<0.05-4.0)
[2024-11-18 08:33] LABS: Carbohydrate Antigen 19-9 5 U/mL (<34)
== END 2024-11-16 10:13 | disposition home or self-care (01) ==
LOC: HO.HMGCLDS 10:12
PROVIDERS: PCP Nurse Practitioner Family; Visit Provider Nurse Practitioner Family
DX: K04.7 Periapical abscess without sinus (principal); R59.0 Localized enlarged lymph nodes; Z00.01 Encounter for general adult medical examination with abnormal findings; I10 Essential (primary) hypertension; Z80.0 Family history of malignant neoplasm of digestive organs; Z80.42 Family history of malignant neoplasm of prostate; Z12.5 Encounter for screening for malignant neoplasm of prostate
CPT/HCPCS: 36415; 80053; 80061; 81003; 84153; 84443; 85025; 86301; 96127; 99212

== ENCOUNTER 2024-11-30 13:55 | Outpatient (REF) | payer OTHER, SELFPAY ==
--- NOTE | ~2024-11-30 | XR_ITS ---
CLINICAL HISTORY: T85.192A - Other mechanical complication of implanted electronic neurost... 2 views thoracic spine Comparison: None Findings: Normal alignment. No acute fractures or dislocation. Epidural leads are at the level of the T8 vertebra. No significant degenerative change. IMPRESSION: No acute findings. This document has been electronically signed by: Christopher Carmona MD on 12/02/2024 08:50:22
--- NOTE | ~2024-11-30 | XR_ITS ---
CLINICAL HISTORY: T85.192A - Other mechanical complication of implanted electronic neurost... 2 views lumbar spine Comparison: None Findings: Mild scoliosis. No acute fractures or dislocation. There is L5 spinal dysraphism. Multiple level degenerative disc and facet change IMPRESSION: No acute findings. This document has been electronically signed by: Christopher Carmona MD on 12/02/2024 08:49:17
== END 2024-11-30 13:56 | disposition home or self-care (01) ==
LOC: HO.HOSX 13:55
PROVIDERS: PCP Nurse Practitioner Family; Referring Provider Nurse Practitioner Family; Visit Provider Neurological Surgery
DX: T85.192A Other mechanical complication of implanted electronic neurostimulator of spinal cord electrode (lead), initial encounter (principal)
CPT/HCPCS: 72070; 72100; 99202

== ENCOUNTER → 2024-11-30 14:45 | Outpatient (BNV) | payer OTHER, SELFPAY | PROVIDERS: PCP Nurse Practitioner Family; Referring Provider Nurse Practitioner Family; Visit Provider Specialist | DX: T85.192A Other mechanical complication of implanted electronic neurostimulator of spinal cord electrode (lead), initial encounter (principal) | CPT/HCPCS: 72070; 72100 ==

== ENCOUNTER 2024-12-23 14:31 | Outpatient (AMB) | payer OTHER, SELFPAY ==
--- NOTE | 2024-12-23 14:33 | MHC.OFFVIS ---
Vital Signs 12/23/24 14:36 Height 5 ft 10 in Weight 174 lb BMI 25.0 BP 126/64 Blood Pressure Location Rt brachial Position Sitting Pulse 73 Pulse Source Pulse Oximeter Pulse Oximetry (%) 94 Oxygen Delivery Method Room Air Intake Visit Reasons: Abnormal CT scan Passenger Elevator Operator Required: No Cantilever Crane Operator: Cantilever Crane Operator offered & declined Accompanied by: Spouse Allergies codeine [CODEINE] Allergy (Intermediate, Verified 12/23/24 14:43) RASH morphine [MORPHINE] Allergy (Intermediate, Verified 12/23/24 14:43) HIVES, rash lamotrigine [Lamictal] Allergy (Unknown, Verified 12/23/24 14:43) hives quetiapine [Seroquel] Allergy (Unknown, Verified 12/23/24 14:43) lack jaw ANTIPSYCHOTICS Allergy (Unknown, Uncoded 12/23/24 14:43) DYSTONIA Codeine Allergy (Unknown, Uncoded 12/23/24 14:43) Hives atypical anti-psychotics Adverse Reaction (Unknown, Uncoded 12/23/24 14:43) lock jaw Medication List - Last Reconciled 12/23/24 by Guerda Hutn, ALICIA buprenorphine-naloxone 8-2 mg 30 mg sublingual DAILY gabapentin 600 mg PO QID 30 days hydrochlorothiazide 25 mg PO DAILY 90 days ibuprofen 800 mg PO TID PRN metoprolol succinate ER 50 mg PO DAILY nicotine (polacrilex) 4 mg buccal Q2H nitroglycerin 0.4 mg sublingual DIRECTED sildenafil 25 mg PO DAILY PRN temazepam 30 mg PO BEDTIME PRN 30 days tizanidine 4 mg PO TID PRN [address] days HPI HPI Ab[address] scan: Details: Vikas is a pleasant 49 year old male, currently vaping for the past 5 years, with approximately 43+ pyh, with underlying sleep apnea. He was referred by PCP for pulmonary evaluation for abnormal chest CT. He initially had a chest CT in 2021 which revealed lymphadenopathy however lost to follow up. He recently underwent chest CT with contrast which revealed essentially stable right hilar lymphadenopathy, 1.3 x 1.2 cm, with new finding of enlarged left hilar lymphadenopathy, 1.1 cm, subcarinal 1cm and shotty axillary lymph nodes. Images not available today. At the time of the most recent CT patient did have dental infection requiring Augmentin. He currently denies any unintentional weight loss or decrease in appetite, however was evaluated by hematology in 2021 when he had unintentional 35+ lb weight loss with associated hypercalcemia, with no significant findings. He endorses night sweats and chills, denies fevers. He reports intermittent chest tightness and dry cough otherwise denies dyspnea and wheezing. He current vapes, but previously smoked cigarettes for almost 30 years. He has trialed NRT and Wellbutrin in the past with no effect, not interested in Chantix. He denies personal or family h/o sarcoidosis. He reports pruritic skin/eyes. No recent ophthalmology evaluation. He denies personal or family h/o autoimmune conditions. He endorses widespread joint pain. He denies h/o recurrent URI. [facility] Medical History Sleep apnea Nerve root compression Surgical History S/P insertion of spinal cord stimulator H/O left wrist surgery H/O spinal fusion Family History Father Diabetes Hypertension Pancreatic cancer Lung cancer Mental health disorder Mother Pulmonary embolism Mental health disorder Paternal Uncle Substance use disorder Sister Substance use disorder Social History (Updated 12/23/24 @ 14:45 by Guerda Hunt LPN) Household Members: Spouse and Family Housing: House Are you a primary critical care rn to a significant other at home: No Do you presently have visiting nurse or other home services: No Alcohol intake: never Patient Tobacco Use Status: Former Tobacco user Cigarette Packs Per Day: 1.5 Years Smoked: 4 years ago e-Cigarette/Vaping Use: Currently Using Second Hand Smoke Exposure: Yes Substance Use Type: Marijuana service: No Current occupational status: disabled Current occupation: Right handed. Cognitive needs: No Hearing needs: No Vision needs: No Review of Systems Const Denies chills, Denies excessive sweating, Denies fever(s) and Denies headache(s) Eyes Denies dry eyes and Denies irritation ENT Reports Normal hearing present, Denies headache(s), Denies nasal congestion, Denies nasal discharge, Denies post nasal drip and Denies sore throat Card Denies chest pain, Denies chest pain at rest, Denies chest pain with activity, Denies claudication, Denies leg edema, Denies dyspnea on exertion, Denies orthopnea and Denies paroxysmal nocturnal dyspnea Resp Denies chest congestion, Denies cough, Denies excessive phlegm production, Denies pain on inspiration, Denies pain with cough, Denies dyspnea on exertion, Denies stridor and Denies wheezing Musc Denies myalgias Neuro Reports Normal hearing present and Denies headache(s) Endo Denies excessive sweating Janak/Lymph Denies lymphadenopathy Aller/Immun Denies seasonal rhinorrhea and Denies wheezing Physical Exam Vital Signs: Last Vital Signs Pulse 73 12/23/24 14:36 BP 126/64 12/23/24 14:36 Pulse Ox 94 12/23/24 14:36 Oxygen Delivery Method Room Air 12/23/24 14:36 BMI result Body Mass Index 25.0 Const General: cooperative, healthy appearing, comfortable, no acute distress, well developed and alert Orientation/consciousness: patient oriented x3 Limitations: no limitations HEENT Head: Yes normal to inspection, Yes normocephalic and Yes atraumatic Ears: hearing grossly normal bilaterally and external ears normal Eyes General: appearance normal, both eyes and all related structures Eyelids: Yes eyelids normal Sclerae: sclerae normal EOM: EOMs intact bilaterally Neck Neck: Yes normal visual inspection and Yes no lymphadenopathy Lymphatic: no lymphadenopathy noted Chest Chest palpation & inspection: normal inspection of the chest Resp Effort & Inspection: normal respiratory effort, able to speak in complete sentences, no audible wheezes, Actively coughing, no stridor, not tachypneic, no tripod positioning and no use of accessory muscles Auscultation: clear to auscultation bilaterally Cardio Jugular venous distension: no JVD Rate: regular rate Rhythm: regular rhythm Skin Other: warm, dry General skin exam: no rashes or lesions noted Neuro General: patient oriented x3 Cranial nerves: Yes Normal hearing present Cognition (Neuro): normal cognition Gait exam (Neuro): Normal gait present Extrem General: Yes normal to inspection, Yes capillary refill normal, Yes no clubbing, cyanosis or edema and Yes no pedal edema Psych Appearance: grossly normal and well kempt Speech and movement: Normal speech and movement present and Clear speech present Affect: normal affect Attitude: cooperative Thought process: Normal thought process present Thought content: Normal thought content present Insight: Good insight present (Psych) Judgement: Good judgement present (Psych) Results Reviewed Results Reviewed: Assessment & Plan Assessment & Plan (1) Hilar lymphadenopathy: Code(s): R59.0 - Localized enlarged lymph nodes Category: Medical (2) Cough: Code(s): R05 - Cough Category: Medical Plan Vikas presents after recent chest CT which revealed hilar lymphadenopathy. Will attempt to obtain images and PCP already entered order for repeat chest CT with contrast in three months. Will also send for PFT to assess for any obstructive or restrictive defect. All questions were answered and patient is in agreement of plan. Will follow up to review results or sooner if needed. Coding Level of Care Code New Pt Level 4 (50163) Diagnoses Hilar lymphadenopathy R59.0 Cough R05
[2024-12-23 14:36] VITALS: BP 126/64; PULSE 73; O2SAT 94; BMI 25.0
== END 2024-12-23 15:16 | disposition home or self-care (01) ==
PROVIDERS: PCP Nurse Practitioner Family; Referring Provider Nurse Practitioner Family; Visit Provider Nurse Practitioner Family
DX: R59.0 Localized enlarged lymph nodes (principal); R05.9 Cough, unspecified
CPT/HCPCS: 99204

== ENCOUNTER → 2024-12-23 14:31 | Outpatient (BNVA) | payer OTHER, SELFPAY | PROVIDERS: PCP Nurse Practitioner Family; Referring Provider Nurse Practitioner Family; Visit Provider Nurse Practitioner Family | DX: R59.0 Localized enlarged lymph nodes (principal); R05.9 Cough, unspecified | CPT/HCPCS: 99202 ==

== ENCOUNTER 2025-01-04 11:44 | Outpatient (REF) | payer OTHER, SELFPAY ==
--- NOTE | 2025-01-04 11:51 | PFT_ITS ---
Flows: FEV1: 122 % of predicted at 4.87 L FVC: 117 % of predicted at 5.91 L FEV1/FVC: 82 % Bronchodilator response: Absent Volumes: Total lung capacity: 105 % of predicted at 7.57 L Residual volume: 88 % of predicted at 1.57 L Slow vital capacity: 111 % of predicted at 6.01 L Expiratory reserve volume: 136 % of predicted at 2.03 L Diffusion capacity: Normal Impression: No obstructive or restrictive ventilatory defect. No bronchodilator response. Normal pulmonary function test. MTDD
[2025-01-04 12:25] VITALS: PULSE 65
== END 2025-01-04 11:45 | disposition home or self-care (01) ==
LOC: HO.RESP 11:44
PROVIDERS: PCP Nurse Practitioner Family; Visit Provider Nurse Practitioner Family
DX: R06.00 Dyspnea, unspecified (principal)
CPT/HCPCS: 94010; 94640; 94727; 94729

== ENCOUNTER → 2025-01-04 11:51 | Outpatient (BNV) | payer OTHER, SELFPAY | PROVIDERS: PCP Nurse Practitioner Family; Visit Provider Internal Medicine Pulmonary Disease | DX: R06.00 Dyspnea, unspecified (principal) | CPT/HCPCS: 94060; 94727; 94729 ==

== ENCOUNTER 2025-03-08 15:53 | Outpatient (REF) | payer OTHER, SELFPAY ==
--- NOTE | ~2025-03-08 | CT_ITS ---
CLINICAL HISTORY: R59.0 - Localized enlarged lymph nodes CT chest with contrast Comparison: None Findings: There is mild coronary artery disease. The visualized thyroid and mediastinum are unremarkable. The lungs are clear. The upper abdomen is unremarkable. No acute fractures. A spinal stimulation device is present. IMPRESSION: 1. Unremarkable chest CT. This document has been electronically signed by: Jose Delong MD on 03/09/2025 13:30:48
[2025-03-08] MEDS: iohexoL 350 MG/ML 100 ML INFUS..BTL IV (16:42)
== END 2025-03-08 15:54 | disposition home or self-care (01) ==
LOC: HO.CT 15:53
PROVIDERS: PCP Nurse Practitioner Family; Visit Provider Nurse Practitioner Family
DX: R59.0 Localized enlarged lymph nodes (principal)
CPT/HCPCS: 71260; Q9967

== ENCOUNTER → 2025-03-08 15:56 | Outpatient (BNV) | payer OTHER, SELFPAY | PROVIDERS: PCP Nurse Practitioner Family; Visit Provider Radiology Diagnostic Radiology | DX: R59.0 Localized enlarged lymph nodes (principal) | CPT/HCPCS: 71260 ==

== ENCOUNTER 2025-03-22 14:24 | Outpatient (AMB) | payer OTHER, SELFPAY ==
--- NOTE | 2025-03-22 14:25 | MHC.OFFVIS ---
Vital Signs 03/22/25 14:26 Height 5 ft 10 in Weight 176 lb 6 oz BMI 25.3 BP 108/74 Blood Pressure Location Rt brachial Position Sitting Pulse 64 Pulse Source Pulse Oximeter Pulse Oximetry (%) 97 Oxygen Delivery Method Room Air Intake Visit Reasons: Abnormal CT scan Allergies codeine [CODEINE] Allergy (Intermediate, Verified 03/22/25 14:32) RASH morphine [MORPHINE] Allergy (Intermediate, Verified 03/22/25 14:32) HIVES, rash lamotrigine [Lamictal] Allergy (Unknown, Verified 03/22/25 14:32) hives quetiapine [Seroquel] Allergy (Unknown, Verified 03/22/25 14:32) lack jaw ANTIPSYCHOTICS Allergy (Unknown, Uncoded 03/22/25 14:32) DYSTONIA Codeine Allergy (Unknown, Uncoded 03/22/25 14:32) Hives atypical anti-psychotics Adverse Reaction (Unknown, Uncoded 03/22/25 14:32) lock jaw HPI HPI Abnormal CT scan: Details: Vikas is a pleasant 49 year old male, currently vaping for the past 5 years, with approximately 43+ pyh, with underlying sleep apnea. He initially had a chest CT in 2021 which revealed lymphadenopathy however lost to follow up. He recently underwent chest CT with contrast which revealed essentially stable right hilar lymphadenopathy, 1.3 x 1.2 cm, with new finding of enlarged left hilar lymphadenopathy, 1.1 cm, subcarinal 1cm and shotty axillary lymph nodes. At the time of the most recent CT patient did have dental infection requiring Augmentin. At the last visit he was sent for repeat chest CT to assess lymphadenopathy and PFT. Today he denies any respiratory symptoms. He denies any visits to urgent care hospitalizations related to respiratory distress since last visit. [facility] Medical History Sleep apnea Nerve root compression Surgical History S/P insertion of spinal cord stimulator H/O left wrist surgery H/O spinal fusion Family History Father Diabetes Hypertension Pancreatic cancer Lung cancer Mental health disorder Mother Pulmonary embolism Mental health disorder Paternal Uncle Substance use disorder Sister Substance use disorder Social History Household Members: Spouse and Family Housing: House Are you a primary manager medicare to a significant other at home: No Do you presently have visiting nurse or other home services: No Alcohol intake: never Patient Tobacco Use Status: Former Tobacco user Cigarette Packs Per Day: 1.5 Years Smoked: 4 years ago e-Cigarette/Vaping Use: Currently Using Second Hand Smoke Exposure: Yes Substance Use Type: Marijuana service: No Current occupational status: disabled Current occupation: Right handed. Cognitive needs: No Hearing needs: No Vision needs: No Review of Systems Const Denies chills, Denies excessive sweating, Denies fever(s), Denies headache(s) and Denies night sweats Eyes Denies dry eyes, Denies irritation and Denies itchy eyes ENT Reports Normal hearing present, Denies headache(s), Denies nasal congestion, Denies nasal discharge, Denies post nasal drip and Denies sore throat Card Denies chest pain, Denies chest pain at rest, Denies chest pain with activity, Denies claudication, Denies leg edema, Denies dyspnea, Denies dyspnea on exertion, Denies orthopnea and Denies paroxysmal nocturnal dyspnea Resp Denies chest congestion, Denies cough, Denies excessive phlegm production, Denies pain on inspiration, Denies pain with cough, Denies dyspnea, Denies dyspnea on exertion, Denies stridor and Denies wheezing Musc Denies myalgias Neuro Reports Normal hearing present and Denies headache(s) Endo Denies excessive sweating Janak/Lymph Denies lymphadenopathy Aller/Immun Denies itchy eyes, Denies seasonal rhinorrhea and Denies wheezing Physical Exam Vital Signs: Last Vital Signs Pulse 64 03/22/25 14:26 BP 108/74 03/22/25 14:26 Pulse Ox 97 03/22/25 14:26 Oxygen Delivery Method Room Air 03/22/25 14:26 BMI result Body Mass Index 25.3 Const General: cooperative, healthy appearing, comfortable, no acute distress, well developed and alert Orientation/consciousness: patient oriented x3 Limitations: no limitations HEENT Head: Yes normal to inspection, Yes normocephalic and Yes atraumatic Ears: hearing grossly normal bilaterally and external ears normal Eyes General: appearance normal, both eyes and all related structures Eyelids: Yes eyelids normal Sclerae: sclerae normal EOM: EOMs intact bilaterally Neck Neck: Yes normal visual inspection and Yes no lymphadenopathy Lymphatic: no lymphadenopathy noted Chest Chest palpation & inspection: normal inspection of the chest Resp Effort & Inspection: normal respiratory effort, able to speak in complete sentences, no audible wheezes, no cough, no stridor, not tachypneic, no tripod positioning and no use of accessory muscles Auscultation: clear to auscultation bilaterally Cardio Jugular venous distension: no JVD Rate: regular rate Rhythm: regular rhythm Skin Other: warm, dry General skin exam: no rashes or lesions noted Neuro General: patient oriented x3 Cranial nerves: Yes Normal hearing present Cognition (Neuro): normal cognition Gait exam (Neuro): Normal gait present Extrem General: Yes normal to inspection, Yes capillary refill normal, Yes no clubbing, cyanosis or edema and Yes no pedal edema Psych Appearance: grossly normal and well kempt Speech and movement: Normal speech and movement present and Clear speech present Affect: normal affect Attitude: cooperative Thought process: Normal thought process present Thought content: Normal thought content present Insight: Good insight present (Psych) Judgement: Good judgement present (Psych) Results Reviewed Results Reviewed: [place] [address] CT Scan Report Signed Patient: Vikas Bridges MR#: [id number] : 1975 Acct:[id number] Age/Sex: 49 / M ADM Date: 03/08/25 Loc: HO.CT Attending Dr: Lara Zelaya NP Ordering Physician: Lara Zelaya NP Date of Service: 03/08/25 Procedure(s): CT chest w IV con Accession Number(s): [id number] cc: Diogo Brush GRILL PREP COOK-BC; Lara Zelaya NP~ Report Number: [id number]: Total DLP = 185.00 mGy-cm CLINICAL HISTORY: R59.0 - Localized enlarged lymph nodes CT chest with contrast Comparison: None Findings: There is mild coronary artery disease. The visualized thyroid and mediastinum are unremarkable. The lungs are clear. The upper abdomen is unremarkable. No acute fractures. A spinal stimulation device is present. IMPRESSION: 1. Unremarkable chest CT. 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 Will repeat in 6 months to assess for continued stability with CT chest with IV contrast. Reviewed PFT which was essentially normal, with bronchodilator response in small to medium airways only. He currently denies any respiratory symptoms and respiratory exam unremarkable. Denies any recent URI. Smoking cessation reviewed. Patient does mention possible upcoming neurosurgery with Dr. Shrestha. At this time, patient would be considered a low risk for pulmonary complications. Consider bronchodilators in perioperative period. All questions were answered and patient is in agreement of plan. Will follow up to review results or sooner if needed. Orders: Orders CT chest w IV con 5 Months R59.0 - Localized enlarged lymph nodes Coding Level of Care Code Est Pt Level 4 (86049) Diagnoses Hilar lymphadenopathy R59.0 Personal history of tobacco use Z87.891
[2025-03-22 14:26] VITALS: BP 108/74; PULSE 64; O2SAT 97; BMI 25.3
== END 2025-03-22 14:49 | disposition home or self-care (01) ==
LOC: HO.HPSW 14:25
PROVIDERS: PCP Nurse Practitioner Family; Visit Provider Nurse Practitioner Family
DX: R59.0 Localized enlarged lymph nodes (principal); Z87.891 Personal history of nicotine dependence
CPT/HCPCS: 99214

== ENCOUNTER → 2025-03-22 14:24 | Outpatient (BNVA) | payer OTHER, SELFPAY | PROVIDERS: PCP Nurse Practitioner Family; Visit Provider Nurse Practitioner Family | DX: R59.0 Localized enlarged lymph nodes (principal); Z87.891 Personal history of nicotine dependence | CPT/HCPCS: 99212 ==

== ENCOUNTER 2025-05-19 08:29 | Outpatient (AMB) | payer OTHER, SELFPAY ==
--- NOTE | 2025-05-19 08:33 | A.SPINEOV_ITS ---
Intake Visit Reasons: discuss back stimulator removal Intake Note: Mr. Bridges is here today to Discuss back stimulator removal. 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 Marketing Executive Required: No Allergies codeine (CODEINE) Allergy (Intermediate, Verified 05/19/25 08:34) RASH morphine (MORPHINE) Allergy (Intermediate, Verified 05/19/25 08:34) HIVES, rash lamotrigine (Lamictal) Allergy (Unknown, Verified 05/19/25 08:34) hives quetiapine (Seroquel) Allergy (Unknown, Verified 05/19/25 08:34) lack jaw ANTIPSYCHOTICS Allergy (Unknown, Uncoded 03/22/25 14:32) DYSTONIA Codeine Allergy (Unknown, Uncoded 03/22/25 14:32) Hives atypical anti-psychotics Adverse Reaction (Unknown, Uncoded 03/22/25 14:32) lock jaw Assessment & Plan Assessment & Plan (1) Malfunction of spinal cord stimulator: Code(s): T85.192A - Other mechanical complication of implanted electronic neurostimulator of spinal cord electrode (lead), initial encounter Category: Medical Qualifiers: Encounter type: initial encounter Qualified Code(s): T85.192A - Other mechanical complication of implanted electronic neurostimulator of spinal cord electrode (lead), initial encounter Plan Dear colleague, On 05/19/2025, I saw for follow-up Vikas Bridges to discuss spinal cord stimulator removal. I saw him back in November to discuss the same issue. He had put an spinal cord stimulator placed approximately 7 years ago. It only worked for 6 months. He has not charged it for 4 and half years. The stimulator is painful. The patient wants it removed. It will also give him the opportunity to obtain MRIs and to be re-evaluated for his ongoing spinal pain. He needed clearance which has happened with the equipment operat0r and by his primary care physician. Therefore we will schedule him for spinal cord removal on 06/28/2025. All questions were answered. I spent 20 minutes in his consult. Yoav Shrestha MD, PhD Spine Fellowship Trained Neurosurgeon Director, [facility] Coding Level of Care Code Est Pt Level 3 (72440) Diagnoses Malfunction of spinal cord stimulator, initial encounter T85.192A Encounter type: initial encounter
== END 2025-05-19 09:19 | disposition home or self-care (01) ==
LOC: HO.HNS 08:30
PROVIDERS: PCP Nurse Practitioner Family; Visit Provider Neurological Surgery
DX: T85.192A Other mechanical complication of implanted electronic neurostimulator of spinal cord electrode (lead), initial encounter (principal)
CPT/HCPCS: 99213

== ENCOUNTER → 2025-05-19 08:29 | Outpatient (BNVA) | payer OTHER, SELFPAY | PROVIDERS: PCP Nurse Practitioner Family; Visit Provider Neurological Surgery | DX: T85.192A Other mechanical complication of implanted electronic neurostimulator of spinal cord electrode (lead), initial encounter (principal) | CPT/HCPCS: 99212 ==

== ENCOUNTER 2025-06-14 09:17 | Outpatient (AMB) | payer OTHER, SELFPAY ==
[2025-06-14 09:20] VITALS: BP 120/82; PULSE 64; RESP 16; O2SAT 96; BMI 24.0
--- NOTE | 2025-06-14 09:20 | MHC.PC.OV ---
Vital Signs 06/14/25 09:20 Height 5 ft 10 in Weight 167 lb BMI 24.0 BP 120/82 Blood Pressure Location Rt brachial Position Sitting Respiration 16 Pulse 64 Pulse Source Pulse Oximeter Pulse Oximetry (%) 96 Oxygen Delivery Method Room Air Intake Visit Reasons: PE Reproduction Production Manager Required: No Accompanied by: Self / Same As Patient Allergies codeine (CODEINE) Allergy (Intermediate, Verified 06/14/25 10:05) RASH morphine (MORPHINE) Allergy (Intermediate, Verified 06/14/25 10:05) HIVES, rash lamotrigine (Lamictal) Allergy (Unknown, Verified 06/14/25 10:05) hives quetiapine (Seroquel) Allergy (Unknown, Verified 06/14/25 10:05) lack jaw ANTIPSYCHOTICS Allergy (Unknown, Uncoded 06/14/25 10:05) DYSTONIA Codeine Allergy (Unknown, Uncoded 06/14/25 10:05) Hives atypical anti-psychotics Adverse Reaction (Unknown, Uncoded 06/14/25 10:05) lock jaw Medication List - Last Reconciled 06/14/25 by Diogo Brush, [facility] buprenorphine-naloxone 8-2 mg 30 mg sublingual DAILY gabapentin 600 mg PO QID 30 days hydrochlorothiazide 25 mg PO DAILY 90 days ibuprofen 800 mg PO TID PRN metoprolol succinate ER 50 mg PO DAILY nicotine (polacrilex) 4 mg buccal Q2H nicotine (polacrilex) 4 mg PO Q8H nitroglycerin 0.4 mg sublingual DIRECTED PRN sildenafil 25 mg PO DAILY PRN temazepam 30 mg PO BEDTIME PRN 30 days tizanidine 4 mg PO TID PRN 90 days Tobacco use date assessed: 06/14/25 Dental Screening Dental Screen Date: 06/14/25 Did you have a dental visit in the last 12 months?: Yes Did you have a dental problem in the last 6 months where you did not have access to dental care?: No Was dental information given to patient?: Patient has dentist HPI PE HPI Details History of Present Illness The patient is a 50-year-old male presenting for a physical examination and evaluation of discomfort related to a spinal stimulator. The patient reports discomfort from a spinal stimulator, which is scheduled for removal due to significant discomfort. He has a history of lymphadenopathy and continues to vape, having quit smoking cigarettes. The patient experiences intermittent chest discomfort without radiation to the upper extremities. He reports fatigue, lack of sexual desire, and slight erectile dysfunction, with a testosterone level planned for evaluation. Preventative care is current, including a recent colon cancer screening ( cologuard) with a stool test. Health Maintenance - Colon cancer screening with stool test is up to date Social History - Substance use: Patient vapes and has quit smoking cigarettes Review of Systems - Cardiovascular: Reports intermittent chest discomfort. Denies radiation to upper extremities. - Respiratory: Denies cough, hemoptysis, or wheezing. - Gastrointestinal: Denies abdominal pain, blood in stool, constipation, or diarrhea. - Neurological: Denies suicidal or homicidal ideation. - General: Reports fatigue. - Genitourinary: Reports lack of sexual desire and slight erectile dysfunction. Physical Exam General: Cooperative, healthy appearing, comfortable, no acute distress and well developed Orientation: Patient oriented x3 Limitations: No limitations Head: Normal to inspection Ears: Hearing grossly normal bilaterally Nose: Normal external nose present Face and sinus: Normal facial exam Eyes: Appearance normal, both eyes and all related structures Neck: Normal visual inspection and Yes full ROM Respiratory: Normal respiratory effort and able to speak in complete sentences. Clear to auscultation bilaterally Cardiovascular: Regular rate and rhythm. Normal S1 and S2. Reports some intermittent and random chest discomfort GI: Normal to inspection. Soft to palpation and nontender. : Testicles without masses/lesions and no hernias appreciated. Skin: No rashes or lesions noted Neuro: Patient oriented x3 Extremities: Normal to inspection. Denies any radicular symptoms down in upper extremity Results Plan The patient will have the spinal stimulator removed due to discomfort. An EKG is planned to evaluate the intermittent chest discomfort. A testosterone level will be checked to assess fatigue and erectile dysfunction. Discussion Notes I discussed with the patient the plan to remove the spinal stimulator due to the discomfort it is causing. We also talked about performing an EKG today to investigate his chest discomfort. (No EKG changes). worsening symptoms/continued symptoms, ER. Additionally, I explained the need to check his testosterone levels to address his fatigue and erectile dysfunction. Patient Instructions - Follow up for spinal stimulator removal as scheduled. - Undergo EKG today for chest discomfort evaluation. - Get blood drawn for testosterone level check. [facility] Medical History Sleep apnea Nerve root compression Surgical History S/P insertion of spinal cord stimulator H/O left wrist surgery H/O spinal fusion Family History Father Diabetes Hypertension Pancreatic cancer Lung cancer Mental health disorder Mother Pulmonary embolism Mental health disorder Paternal Uncle Substance use disorder Sister Substance use disorder Social History (Reviewed 06/14/25 @ 09:42 by Diogo Brush [facility] Household Members: Spouse and Family Housing: House Are you a primary home care specialist to a significant other at home: No Do you presently have visiting nurse or other home services: No Alcohol intake: never Patient Tobacco Use Status: Former Tobacco user Cigarette Packs Per Day: 1.5 Years Smoked: 4 years ago e-Cigarette/Vaping Use: Currently Using Second Hand Smoke Exposure: Yes Substance Use Type: Marijuana service: No Current occupational status: disabled Current occupation: Right handed. Cognitive needs: No Hearing needs: No Vision needs: No Questionnaire PHQ-9 Over the last 2 weeks, how often have you been bothered by any of the following problems? 1. Little interest or pleasure in doing things: several days 2. Feeling down, depressed, or hopeless: several days 3. Trouble falling or staying asleep, or sleeping too much: several days 4. Feeling tired or having little energy: more than half the days 5. Poor appetite or overeating: not at all 6. Feeling bad about yourself - or that you are a failure or have let yourself or your family down: several days 7. Trouble concentrating on things, such as reading the newspaper or watching television: several days 8. Moving or speaking so slowly that other people could have noticed. Or the opposite - being so fidgety or restless that you have been moving around a lot more than usual: several days 9. Thoughts that you would be better off or of hurting yourself in some way: not at all Total score: 8 Depression Screening Interpretation: Positive (has a therapist, denies any SI or HI) Depression Screening Done: Yes 01002 - PHQ-9 Billing: Yes Source: Developed by Drs. Milo LNahed Salas Kurt Kroenke and colleagues, with an educational natty from [employer]. Thrive Questionnaire Date Thrive assessed: 11/16/24 I am a: Patient What is your living situation today?: I have a steady place to live Within the past 12 months, did the food you bought not last and you didn't have the money to get more?: Sometimes True Within the past 12 months, did you worry whether your food would run out before you got money to buy more?: Sometimes True Do you have trouble paying for medicines?: Yes Do you have trouble getting transportation to medical appointments?: No Do you have trouble paying your heating and electricity bill?: Yes Do you have trouble taking care of your child, family member or friend?: No Do you have trouble with day-to-day activities such as bathing, preparing meals, shopping, managing finances, etc.?: Yes Are you currently unemployed and looking for a job?: No Are you interested in more education?: I choose not to answer this question Currently or been in a relationship where the following occur: No concerns reported THRIVE Score: 3 AUDIT C Alcohol Use Questionnaire (AUDIT-C) 3. How often do you have six or more drinks on one occasion?: Never Total Score: 0 LEFTY-7 AMB Questionnaire LEFTY-7 Date LEFTY - 7 assessed: 06/14/25 Feeling nervous, anxious, or on edge: 1 = Several days Not being able to stop or control worryin = Several days Worrying too much about different things: 1 = Several days Trouble relaxin = Several days Being so restless that it is hard to sit still: 1 = Several days Becoming easily annoyed or irritable: 1 = Several days Feeling afraid as if something awful might happen: 1 = Several days Total LEFTY-7 score (0-4 normal; 5-9 mild; 10-14 moderate; 15-21 severe): 7 Source: Developed by Nahed Sharma Kurt Kroenke and colleagues, with an educational natty from [employer]. LEFTY-7 Assessment Billing LEFTY-7 Assessment Tool: LEFTY-7 Assessment 38735 (denies any si or hi, has a therapist) Physical exam (Primary Care) Vital Signs: Last Vital Signs Pulse 64 06/14/25 09:20 Resp 16 06/14/25 09:20 BP 120/82 06/14/25 09:20 Pulse Ox 96 06/14/25 09:20 Oxygen Delivery Method Room Air 06/14/25 09:20 BMI result Body Mass Index 24.0 Tobacco/Smoking Status: Tobacco use Status Tobacco use date assessed 06/14/25 06/14/25 09:23 Patient Tobacco Use Status Former Tobacco user 06/14/25 09:23 e-Cigarette/Vaping Use Currently Using 06/14/25 09:23 PHQ-9: PHQ-9 Score PHQ-9: Total score 8 06/14/25 09:36 Depression Screening Interpretation: Positive (has a therapist, denies any SI or HI) Thrive Assessment: Date of Thrive Assessment Date Thrive assessed 11/16/24 06/14/25 09:23 Currently or been in a relationship where the following occur: No concerns reported Coding Level of Care Code Est Pt Prev Care 40-64y(38186) Diagnoses Encounter for routine adult physical exam with abnormal findings Z00.01 Family hx of prostate cancer Z80.42 Tick bite W57.XXXA Lack of sexual desire F52.0 Vitamin D deficiency E55.9 Chest pain R07.9 Additional Codes PHQ-9 - 73261 - PHQ-9 Billing: Yes ([id number]) LEFTY-7 Assessment Billing - LEFTY-7 Assessment Tool: LEFTY-7 Assessment 67129 ([id number]) Assessment & Plan Assessment & Plan (1) Encounter for routine adult physical exam with abnormal findings: Code(s): Z00.01 - Encounter for general adult medical examination with abnormal findings Category: Medical (2) Family hx of prostate cancer: Code(s): Z80.42 - Family history of malignant neoplasm of prostate Category: Medical (3) Tick bite: Code(s): W57.XXXA - Bitten or stung by nonvenomous insect and other nonvenomous arthropods, initial encounter Category: Medical (4) Lack of sexual desire: Code(s): F52.0 - Hypoactive sexual desire disorder Category: Medical (5) Vitamin D deficiency: Code(s): E55.9 - Vitamin D deficiency, unspecified Category: Medical (6) Chest pain: Code(s): R07.9 - Chest pain, unspecified Category: Medical Plan . Orders: Orders Complete Blood Count Auto Diff Today Z00.01 - Encounter for general adult medical examination with abnormal findings TSH reflex Free T4 Today Z00.01 - Encounter for general adult medical examination with abnormal findings Prostate Specific Antigen Scr Today Z80.42 - Family history of malignant neoplasm of prostate Lyme IgG/IgM w/reflex to WB Today W57.XXXA - Bitten or stung by nonvenomous insect and other nonvenomous arthropods, initial encounter Tick-borne Disease Molecular Today W57.XXXA - Bitten or stung by nonvenomous insect and other nonvenomous arthropods, initial encounter Follicle Stimulating Hormone Today F52.0 - Hypoactive sexual desire disorder Comprehensive Panacea. Panel Fast Today Z00.01 - Encounter for general adult medical examination with abnormal findings UA CC w/rflx Micro + Cult Today Z00.01 - Encounter for general adult medical examination with abnormal findings Lipid Panel Today Z00.01 - Encounter for general adult medical examination with abnormal findings Testosterone, Free/Total Today F52.0 - Hypoactive sexual desire disorder Lutenizing Hormone Today F52.0 - Hypoactive sexual desire disorder Sex Hormone Binding Globulin Today F52.0 - Hypoactive sexual desire disorder Vitamin D 25-OH Total Today E55.9 - Vitamin D deficiency, unspecified AMB EKG-In Office Today R07.9 - Chest pain, unspecified
== END 2025-06-14 12:15 | disposition home or self-care (01) ==
LOC: HO.HMCC 09:18
PROVIDERS: PCP Nurse Practitioner Family; Visit Provider Nurse Practitioner Family
DX: Z00.01 Encounter for general adult medical examination with abnormal findings (principal); Z80.42 Family history of malignant neoplasm of prostate; W57.XXXA Bitten or stung by nonvenomous insect and other nonvenomous arthropods, initial encounter; F52.0 Hypoactive sexual desire disorder; E55.9 Vitamin D deficiency, unspecified; R07.9 Chest pain, unspecified

== ENCOUNTER → 2025-06-14 09:17 | Outpatient (BNVA) | payer OTHER, SELFPAY | PROVIDERS: PCP Nurse Practitioner Family; Visit Provider Nurse Practitioner Family | DX: Z00.01 Encounter for general adult medical examination with abnormal findings (principal); R53.83 Other fatigue; N52.9 Male erectile dysfunction, unspecified; F52.0 Hypoactive sexual desire disorder; E55.9 Vitamin D deficiency, unspecified; R07.9 Chest pain, unspecified; Z80.42 Family history of malignant neoplasm of prostate; Z96.82 Presence of neurostimulator; Z87.891 Personal history of nicotine dependence | CPT/HCPCS: 96127; 99396 ==

== ENCOUNTER 2025-06-28 06:09 | Day surgery (SDC) | payer OTHER, SELFPAY ==
[2025-06-23 08:05] VITALS: BMI 24.0
--- NOTE | 2025-06-23 08:32 | HO.ANESPROP2 ---
Documented by User: Nadege Dixon NP 06/23/25 13:09 HPI - Anesthesia Eval Consult details Narrative: 50yo M for Spinal Cord Stimulation REMOVAL (insertion 2018) Suboxone 24mg daily (8mg TID): Pt states that he has been stable on this dose for a long time and prefers not to adjust preop and avoid periop opiates. 2019 spinal implant under TIVA with propofol/ketamine only. Understands post op management with opiates limited d/t current suboxone dose. APAP, elma, robaxin ordered by [facility] Medically optimized per PCP Pulmo optimized per routine office visit 02/2025. Follows [facility] pulmo for smoking hx, stable hilar lymphadenopathy by CT scan PMFSH Active Problems Active Problems: All Active Problems Chest pain (Acute) Vitamin D deficiency (Acute) Lack of sexual desire (Acute) Personal history of tobacco use (Acute) Dyspnea (Acute) Malfunction of spinal cord stimulator (Acute) Abdominal discomfort (Acute) Hilar lymphadenopathy (Acute) Nerve root compression (Acute) Family hx of prostate cancer (Acute) Family history of pancreatic cancer (Acute) Encounter for routine adult physical exam with abnormal findings (Acute) Screening for colon cancer (Acute) Hip flexor tendinitis (Acute) Weight loss (Acute) HTN (hypertension) (Acute) Weight loss (Acute) Contusion of back (Acute) Weight loss (Acute) S/P insertion of spinal cord stimulator (Acute) Tick bite (Acute) Left foot pain (Acute) Penile lesion (Acute) Cough (Acute) Physical exam (Acute) Past Medical History Medical History Sleep apnea Nerve root compression Family History Family History Father Diabetes Hypertension Pancreatic cancer Lung cancer Mental health disorder Mother Pulmonary embolism Mental health disorder Paternal Uncle Substance use disorder Sister Substance use disorder Surgical History Surgical History S/P insertion of spinal cord stimulator H/O left wrist surgery H/O spinal fusion Social History Social History Household Members: Spouse and Family Housing: House Are you a primary animal care attendant to a significant other at home: No Do you presently have visiting nurse or other home services: No Alcohol intake: never Comment: has used cane in past Patient Tobacco Use Status: Former Tobacco user Cigarette Packs Per Day: 1.5 Years Smoked: 4 years ago e-Cigarette/Vaping Use: Currently Using Second Hand Smoke Exposure: Yes Use of substances other than those prescribed or required for medical reasons: No Substance Use Type: Marijuana Are you DNR?: No Advance Directives: No Advance Directives Information Provided: Yes Poor oral hygiene: No service: No Current occupational status: disabled Current occupation: Right handed. Cognitive needs: No Hearing needs: No Vision needs: No Meds Allergies Allergy/AdvReac Type Severity Reaction Status Date / Time codeine (CODEINE) Allergy Intermediate RASH Verified 06/14/25 10:05 morphine (MORPHINE) Allergy Intermediate HIVES, rash Verified 06/14/25 10:05 lamotrigine (Lamictal) Allergy Unknown hives Verified 06/14/25 10:05 quetiapine (Seroquel) Allergy Unknown lack jaw Verified 06/14/25 10:05 ANTIPSYCHOTICS Allergy Unknown DYSTONIA Uncoded 06/14/25 10:05 Codeine Allergy Unknown Hives Uncoded 06/14/25 10:05 atypical anti-psychotics AdvReac Unknown lock jaw Uncoded 06/14/25 10:05 Home Medications ?Medication ?Instructions ?Recorded ?Confirmed ?Last Taken ?Type buprenorphine 8 mg-naloxone 2 mg 1 film sublingual TID 02/05/21 06/28/25 06/28/25 History sublingual film Exam Height,Weight and Vital Signs: Height 5 ft 10 in Weight 75.75 kg Pertinent Lab Results Pertinent Lab Results: Laboratory Tests 11/16/24 10:48 WBC 5.2 Hgb 15.0 Hct 44.7 Plt Count 246 Sodium 137 Potassium 3.8 Chloride 99 Carbon Dioxide 32 H BUN 18 H Creatinine 0.91 Narrative Narrative: EKG 05/2025 NSR @ 67 RBBB (old) Assessment and Plan Assessment Anesthesia Assessment: Chart Reviewed Documented by User: Jack Olson MD 06/28/25 07:22 [facility] Past Medical History Medical History Sleep apnea Nerve root compression Functional capacity: independent ambulation Family History Family History Father Diabetes Hypertension Pancreatic cancer Lung cancer Mental health disorder Mother Pulmonary embolism Mental health disorder Paternal Uncle Substance use disorder Sister Substance use disorder Family history of problems with anesthesia: No Surgical History Surgical History S/P insertion of spinal cord stimulator H/O left wrist surgery H/O spinal fusion History of Problems with Anesthesia: No Social History Social History Household Members: Spouse and Family Housing: House Are you a primary animal care attendant to a significant other at home: No Do you presently have visiting nurse or other home services: No Alcohol intake: never Comment: has used cane in past Patient Tobacco Use Status: Former Tobacco user Cigarette Packs Per Day: 1.5 Years Smoked: 4 years ago e-Cigarette/Vaping Use: Currently Using Second Hand Smoke Exposure: Yes Use of substances other than those prescribed or required for medical reasons: No Substance Use Type: Marijuana Are you DNR?: No Advance Directives: No Advance Directives Information Provided: Yes Poor oral hygiene: No service: No Current occupational status: disabled Current occupation: Right handed. Cognitive needs: No Hearing needs: No Vision needs: No Meds Allergies Allergy/AdvReac Type Severity Reaction Status Date / Time codeine (CODEINE) Allergy Intermediate RASH Verified 06/14/25 10:05 morphine (MORPHINE) Allergy Intermediate HIVES, rash Verified 06/14/25 10:05 lamotrigine (Lamictal) Allergy Unknown hives Verified 06/14/25 10:05 quetiapine (Seroquel) Allergy Unknown lack jaw Verified 06/14/25 10:05 ANTIPSYCHOTICS Allergy Unknown DYSTONIA Uncoded 06/14/25 10:05 Codeine Allergy Unknown Hives Uncoded 06/14/25 10:05 atypical anti-psychotics AdvReac Unknown lock jaw Uncoded 06/14/25 10:05 Home Medications ?Medication ?Instructions ?Recorded ?Confirmed ?Last Taken ?Type buprenorphine 8 mg-naloxone 2 mg 1 film sublingual TID 02/05/21 06/28/25 06/28/25 History sublingual film Exam Exam Date and Time: 06/28/2025 Airway TM Dist: >3cm Loose/Missing/Broken Teeth: Yes (many missing teeth) Heart: rrr Lungs: cta Other: normal Assessment and Plan Assessment Anesthesia Assessment: Anesthesia Plan Discussed Final Anesthetic Review Family History of Problems with Anesthesia: No History of Problems with Anesthesia: No NPO: Yes ASA Class: II Final Preanesthetic Review: No Changes in Pt Med Stat, Meds/Allgs Chart Reviewed, Consent Obtained/Reviewed and Anes Risks/Benef Reviewed Patient Risk: Low Procedure Risk: Low Anesthetic Plan Anesthetic Plan: GA Disposition: Standard PACU
--- NOTE | ~2025-06-28 | FL_ITS ---
EXAMINATION: XR FLUOROSCOPY WITH IMAGES CLINICAL INFORMATION: Spinal stimulator removal. COMPARISON: CT thorax 03/08/2025. TECHNIQUE: Fluoroscopy provided to: Dr. Shrestha Fluoroscopy time: 0.7 minutes DAP: 0.0642 mGycm2 Images: 1 FINDINGS: Solitary spot image of the lumbar spine obtained during spinal stimulator removal. Please refer to the full procedural report for details. FL/FL guidance in OR IMPRESSION: Fluoroscopic guidance. Electronically signed by: Juan Low MD 06/28/2025 12:55 PM EDT
[2025-06-28 06:25] VITALS: BMI 23.0
[2025-06-28 06:44] VITALS: BP 115/72; PULSE 66; RESP 10; TEMP 37.2; O2SAT 97
--- NOTE | 2025-06-28 07:06 | MHC.SHP ---
Pre-Procedural Eval Section A - 24 Hr Update-Section A only Date of Service: 06/28/25 The patient is an INPATIENT: No Changes since office visit: No Cold of Flu in the past 2 weeks, No New Medical Problems, No Changes in Medication and No Patient answered all questions The patient has been examined within 24 hours of the surgical procedure. The History & Physical has been completed within 30 days and I have reviewed it.: No Section B - Complete if H&P > 30 days Chief Complaint: Other mechanical complication of implanted Allergies: Allergies Allergy/AdvReac Type Severity Reaction Status Date / Time codeine (CODEINE) Allergy Intermediate RASH Verified 06/14/25 10:05 morphine (MORPHINE) Allergy Intermediate HIVES, rash Verified 06/14/25 10:05 lamotrigine (Lamictal) Allergy Unknown hives Verified 06/14/25 10:05 quetiapine (Seroquel) Allergy Unknown lack jaw Verified 06/14/25 10:05 ANTIPSYCHOTICS Allergy Unknown DYSTONIA Uncoded 06/14/25 10:05 Codeine Allergy Unknown Hives Uncoded 06/14/25 10:05 atypical anti-psychotics AdvReac Unknown lock jaw Uncoded 06/14/25 10:05 Review of Systems Sugical H&P ROS: Negative: Constitution, Cardiovascular, Respiratory, Neurological, Psychiatric, Hem-Onc, Allergic/Immunologic, Gastrointestinal, Genitourinary, Musculoskeletal, Integumentary, Endocrine and Eyes/Ears/Nose/Throat Exam Surgical H&P Exam: Normal: HEENT, Normal: Heart, Normal: Lungs, Normal: Extremities, Normal: Abdomen, Normal: Skin and Normal: Neurological (awake, alert,oriented x 3 ) Plan Diagnosis/Plan: Unchanged spinal cord stimulator removal Time Spent With Patient Time: Total time managing care of this patient today ___5_ minutes.
[2025-06-28] MEDS: Lactated Ringers 1,000 ML 100 ML IVCONT (07:13)
--- NOTE | 2025-06-28 08:06 | P.OP_ITS ---
Operative Note Operative Note Date of Service: 06/28/25 Narrative: Preop diagnosis: Spinal cord stimulator dysfunction and painful battery site Postop diagnosis: Same Procedure: Removal spinal cord stimulator leads and battery Surgeon: Yoav Shrestha MD Assist: vianey Newman Description of procedure: This 50-year-old male had a spinal cord stimulator placed in 2019 and it was functional for only 6 months. The patient wants to have the spinal cord stimulator removed. The procedure and complications were explained. The patient is also aware that scar tissue may prevent removal of the epidural leads. The patient was consented. The patient was brought to the operating room and endotracheally intubated. The patient was turned prone on the Blaze spine table. Prepping and draping was done followed by time out. The physician tax accounting assistant opened the battery site and explanted the device. In the meantime I had opened the thoracolumbar incision and identified the epidural leads. The nonabsorbable sutures were cut after which I was able to retrieve the epidural leads. The battery and epidural leads were removed in toto. X-ray confirmed there were no residual components left. Hemostasis was done. The incisions were closed in 2 layers with an 0 Vicryl for the fascia 3-0 Vicryl subdermal layer by the physician tax accounting assistant. Op-site was placed to cover the incisions. All sponge needle counts were correct. Patient was extubated and transported stable to recovery. Anesthesia: General Estimated blood loss: Minimal Specimen: None Surgical time: 20 minutes Deposition: Discharged home
--- NOTE | 2025-06-28 08:10 | PM.DS ---
DS: Providers Provider Date of Service: 06/28/25 Date of discharge: 06/28/25 Primary care physician: NALDO Douglas Admitting clinician: Yoav Shrestha DS: Diagnosis Discharge Diagnosis (1) Malfunction of spinal cord stimulator: Status: Acute DS: Summary Time Attestation Discharge Coordination Time (in mins): 7 Quality: Safe Use of Opioids Does Pt have an Active Cancer Diagnosis on the Problem List?: No Quality: Stroke Does the patient have a stroke diagnosis?: No Physical Exam Vital Signs: Vital Signs: Last Vital Signs Temp 98.9 F 06/28/25 06:44 Pulse 66 06/28/25 06:44 Resp 10 L 06/28/25 06:44 BP 115/72 06/28/25 06:44 Pulse Ox 97 06/28/25 06:44 O2 Del Method Room Air 06/28/25 06:44 BMI result Body Mass Index 23.0 Discharge Plan Discharge Patient Disposition: Home, Self-Care Referrals: Diogo Brush FNP-BC [Primary Care Provider, Internal Medicine] - 1 Week Discharge Medications: Continued sildenafil 25 mg tablet 25 mg PO DAILY PRN (Reason: sexual activity) Qty: 10 4RF Rx Instructions: administer 30 minutes to 4 hours before activity, do not take concurrently with nitroglycerin metoprolol succinate 50 mg tablet extended release 24 hr 50 mg PO DAILY Qty: 90 1RF nicotine (polacrilex) 4 mg gum 4 mg buccal Q2H Qty: 100 0RF hydrochlorothiazide 25 mg tablet 25 mg PO DAILY 90 Days Qty: 90 1RF Rx Instructions: for BP nicotine (polacrilex) 4 mg mini lozenge 4 mg PO Q8H Qty: 81 0RF tizanidine 4 mg tablet 4 mg PO TID PRN (Reason: for muscle spasm) 90 Days Qty: 270 0RF ibuprofen 800 mg tablet 800 mg PO TID PRN (Reason: for pain) Qty: 90 0RF temazepam 30 mg capsule 30 mg PO BEDTIME PRN (Reason: Sleep) 30 Days Qty: 30 2RF gabapentin 600 mg tablet 600 mg PO QID 30 Days Qty: 120 3RF nitroglycerin 0.4 mg tablet, sublingual 0.4 mg sublingual DIRECTED PRN (Reason: chest pain) Qty: 25 0RF Rx Instructions: do not take concurrently with sildenafil buprenorphine-naloxone 8-2 mg film 1 film sublingual TID Discharge Orders: Discharge Order (Routine); Ordered 06/28/25 Ordered By: Lexa Omer Diet: Advance to usual diet Activity on Discharge: As tolerated Activity Restrictions/Additional Instructions: After your spinal surgery we ask you to observe the following restrictions/guidelines: Activity: It is normal to feel some discomfort as you increase your activity, but that will improve with time. We ask you avoid heavy lifting or acitivities that cause pain. As a general rule, 8lbs is a safe limit for lifting right after surgery. Walk as much as you feel comfortable but not to exhaustion. You will feel extra tired the first few days after surgery. Stay well hydrated. It is OK to walk up and down stairs You may return to driving when you are off narcotics (such as vicodin, oxycodone, dilaudid, etc), and you are back to normal functional capacity. If you have any concerns please check with office before driving. Return to work is specific to each patient and each surgery, so please speak with your doctor/PA at first follow up. Please bring paperwork such as FMLA at that time if you need it filled out. Medications: For optimum pain control, it is best to start with a combination of 500 mg of Tylenol every 4 hours with 600 mg of Motrin every 8 hours, and use narcotics as needed in between for breakthrough pain. If you take blood thinner such as aspirin, Plavix, Coumadin, Effient, Eliquis etc for conditions such as Afib, DVT, Pulmonary embolus, coronary disease, stents etc please speak with your surgeon about specific details as to when you can resume these medications. Follow up: Please call the office, , after surgery to arrange a 3 week follow up for wound check. Wound Care: You may remove your dressing on the first day after surgery. ?You may ?leave open to air. Please do not remove the steri strips underneath. they will fall off on their own in one week. IT IS NORMAL FOR THE WOUND TO OOZE OR BE BLOODY FOR A FEW DAYS AFTER SURGERY. ?IF THIS HAPPENS JUST PLACE NEW DRESSING OVER IT TO AVOID STAINING CLOTHES. You may shower on post op day # 1 We ask that you do not let the water soak the wound. If it does get wet, just towel dry lightly. Please do not scrub your incision or place any type of chemical/ointment on the wound. No tub baths, pools or jacuzzis for one month. If you have any leaking or redness from your wound, or fevers, please call office Print Language: Burkinan
[2025-06-28 08:18] VITALS: BP 122/68; PULSE 76; RESP 12; TEMP 36.5; O2SAT 100
[2025-06-28 08:23] VITALS: BP 123/84; PULSE 67; RESP 16; O2SAT 96
[2025-06-28 08:28] VITALS: BP 121/81; PULSE 69; RESP 16; O2SAT 97
[2025-06-28 08:32] VITALS: BP 116/71; PULSE 66; RESP 16; O2SAT 97
[2025-06-28 08:48] VITALS: BP 109/70; PULSE 58; RESP 16; TEMP 36.4; O2SAT 99
== END 2025-06-28 09:28 | disposition home or self-care (01) ==
PROVIDERS: PCP Nurse Practitioner Family; Visit Provider Neurological Surgery
PROC: (CPT 63661; principal; 2025-06-28 07:30)
DX: T85.192A Other mechanical complication of implanted electronic neurostimulator of spinal cord electrode (lead), initial encounter (principal); G54.9 Nerve root and plexus disorder, unspecified; G47.33 Obstructive sleep apnea (adult) (pediatric); I10 Essential (primary) hypertension; Z79.891 Long term (current) use of opiate analgesic; Z98.1 Arthrodesis status; Z88.5 Allergy status to narcotic agent; Z88.8 Allergy status to other drugs, medicaments and biological substances; Z87.891 Personal history of nicotine dependence
CPT/HCPCS: 63661; 63688; J0131; J0690; J1100; J1885; J2003; J2250; J2405; J2704

== ENCOUNTER → 2025-06-28 06:09 | Outpatient (BNV) | payer OTHER, SELFPAY | PROVIDERS: PCP Nurse Practitioner Family; Visit Provider Neurological Surgery | DX: T85.192A Other mechanical complication of implanted electronic neurostimulator of spinal cord electrode (lead), initial encounter (principal) | CPT/HCPCS: 63661; 63688; 99499 ==

== ENCOUNTER 2025-07-19 13:49 | Outpatient (REF) | payer OTHER, SELFPAY ==
[2025-07-19 14:23] LABS: MANUAL DIFF FLAG NO
[2025-07-19 14:51] LABS: Hematocrit 39.1 % (42.0-52.0); Hemoglobin 13.5 g/dl (14.0-18.0); Imm Gran Abs Auto 0.01 X10*3/uL (0.00-0.03); Imm Gran Pct Auto 0.2 % (0.0-0.4); Lymphocytes Absolute Auto 1.8 X10*3/uL (1.2-4.9); Mean Corpuscular HGB Conc 34.5 g/dl (31.0-36.0); Mean Corpuscular Hemoglobin 32.4 pg (27.0-33.0); Mean Corpuscular Volume 93.8 fL (80.0-98.0); NRBC Abs Auto 0.000 X10*3/uL (0.0-0.012); NRBC Pct Auto 0.0 /100WBC (0.0-0.2); Platelet Count 221 X10*3/uL (160-400); Red Blood Count 4.17 X10*6/uL (4.60-5.80); White Blood Count 4.9 X10*3/uL (4.8-10.8)
[2025-07-19 15:06] LABS: Appearance Urine Clear; Glucose Urine UA Negative (Negative); PH 7.0 (5.0-9.0); Specific Gravity - Urine 1.010 (1.005-1.025)
[2025-07-19 15:49] LABS: Alanine Aminotransferase 23 U/L (0-40); Albumin Level 4.9 g/dL (3.5-5.0); Alkaline Phosphatase 49 U/L (39-117); Anion Gap 10 (12-20); Aspartate Amino Transferase 31 U/L (5-37); Blood Urea Nitrogen 16 mg/dL (9-16); Calcium 9.1 mg/dL (8.4-10.2); Carbon Dioxide 33 mmol/L (22-29); Chloride 97 mmol/L (96-108); Cholesterol 167 mg/dL (<200); Estimated Glomerular Filt Rate > 60; HDL Cholesterol 74 mg/dL (>40); Potassium 4.0 mmol/L (3.3-5.1); Sodium 136 mmol/L (135-145); Total Protein 7.3 g/dL (6.5-8.0); Triglycerides 63 mg/dL (<150)
[2025-07-20 09:14] LABS: Follicle Stimulating Hormone 6.3 mIU/mL (1.4-12.8)
[2025-07-20 18:23] LABS: Lyme Abs Screen <0.90 index
[2025-07-20 21:53] LABS: A. Phagocytphilium DNA,RT-PCR NOT DETECTED (NOT DETECTED); Babesia Microti DNA, RT-PCR NOT DETECTED (NOT DETECTED); Borrelia Miyamotoi,DNA RT-PCR NOT DETECTED (NOT DETECTED); E.Chaffeensis DNA RT-PCR NOT DETECTED (NOT DETECTED); Lyme(Borrelia ssp)DNA RT-PCR NOT DETECTED (NOT DETECTED)
[2025-08-01 15:54] LABS: Testosterone, Free 13.1 pg/mL (35.0-155.0)
== END 2025-07-19 13:50 | disposition home or self-care (01) ==
LOC: HO.LAB 13:49
PROVIDERS: PCP Nurse Practitioner Family; Visit Provider Nurse Practitioner Family
DX: T85.192A Other mechanical complication of implanted electronic neurostimulator of spinal cord electrode (lead), initial encounter (principal); Z00.01 Encounter for general adult medical examination with abnormal findings; R59.0 Localized enlarged lymph nodes; F52.0 Hypoactive sexual desire disorder; E55.9 Vitamin D deficiency, unspecified; Z12.5 Encounter for screening for malignant neoplasm of prostate; Z13.6 Encounter for screening for cardiovascular disorders; Z80.42 Family history of malignant neoplasm of prostate; W57.XXXA Bitten or stung by nonvenomous insect and other nonvenomous arthropods, initial encounter
CPT/HCPCS: 36415; 80053; 80061; 81003; 82306; 83001; 83002; 84153; 84270; 84402; 84403; 84443; 85025; 86617; 86618; 87468; 87469; 87478; 87484; 87798; 99212

== ENCOUNTER 2025-07-19 14:27 | Outpatient (AMB) | payer OTHER, SELFPAY ==
--- NOTE | 2025-07-19 14:37 | A.SPINEOV_ITS ---
Intake Visit Reasons: 1st post op Intake Note: Mr. Bridges is here today for his 1st post op. Utility [employer] Required: No Allergies codeine (CODEINE) Allergy (Intermediate, Verified 07/19/25 14:38) RASH morphine (MORPHINE) Allergy (Intermediate, Verified 07/19/25 14:38) HIVES, rash lamotrigine (Lamictal) Allergy (Unknown, Verified 07/19/25 14:38) hives quetiapine (Seroquel) Allergy (Unknown, Verified 07/19/25 14:38) lack jaw ANTIPSYCHOTICS Allergy (Unknown, Uncoded 06/14/25 10:05) DYSTONIA Codeine Allergy (Unknown, Uncoded 06/14/25 10:05) Hives atypical anti-psychotics Adverse Reaction (Unknown, Uncoded 06/14/25 10:05) lock jaw Assessment & Plan Assessment & Plan (1) Malfunction of spinal cord stimulator: Code(s): T85.192A - Other mechanical complication of implanted electronic neurostimulator of spinal cord electrode (lead), initial encounter Category: Medical Qualifiers: Encounter type: initial encounter Qualified Code(s): T85.192A - Other mechanical complication of implanted electronic neurostimulator of spinal cord electrode (lead), initial encounter Plan Procedure: SCS removal Vikas comes in today for his 1st postoperative visit. He reports he is very satisfied with the surgery and feels much better than he did preoperatively. The patient reports he is up walking around and completing the majority of his ADLs. He reports that she no longer suffers from his significant back discomfort related to SCS device. Given this, he still suffers from his baseline low back pain and posterior leg pain. He discussed how he would like to come back in for evaluation/Rosenda consult regarding his low back now that he is eligible for MRI imaging. No new neurological deficits. Patient is able to ambulate well, rises from a seated position without difficulty. Incision site is closed, well healing, with no signs of drainage. Small amount of edema near incision non-painful to palpation. There is no need for continued routine postop follow up with [facility]. He will likely be making a new consult visit request to see if we can offer surgical solution for his continued baseline back / leg pain. Stefan Shrestha MD,PhD [facility] Coding Level of Care Code Global (02816) Diagnoses Malfunction of spinal cord stimulator, initial encounter T85.192A Encounter type: initial encounter
== END 2025-07-19 15:04 | disposition home or self-care (01) ==
LOC: HO.HNS 14:28
PROVIDERS: PCP Nurse Practitioner Family; Visit Provider Physician Assistant
DX: T85.192A Other mechanical complication of implanted electronic neurostimulator of spinal cord electrode (lead), initial encounter (principal)
CPT/HCPCS: 99024

== ENCOUNTER 2025-07-27 13:07 | Outpatient (REF) | payer OTHER, SELFPAY ==
[2025-07-27 16:21] LABS: MANUAL DIFF FLAG NO
[2025-07-27 16:31] LABS: Hematocrit 40.3 % (42.0-52.0); Hemoglobin 13.5 g/dl (14.0-18.0); Imm Gran Abs Auto 0.01 X10*3/uL (0.00-0.03); Imm Gran Pct Auto 0.2 % (0.0-0.4); Lymphocytes Absolute Auto 2.2 X10*3/uL (1.2-4.9); Mean Corpuscular HGB Conc 33.5 g/dl (31.0-36.0); Mean Corpuscular Hemoglobin 32.2 pg (27.0-33.0); Mean Corpuscular Volume 96.2 fL (80.0-98.0); NRBC Abs Auto 0.000 X10*3/uL (0.0-0.012); NRBC Pct Auto 0.0 /100WBC (0.0-0.2); Platelet Count 228 X10*3/uL (160-400); Red Blood Count 4.19 X10*6/uL (4.60-5.80); Reticulocytes Absolute 0.063 X10*6/uL (0.026-0.095); White Blood Count 5.0 X10*3/uL (4.8-10.8)
[2025-07-27 16:49] LABS: Iron 136 mcg/dL (45-160); Percent Iron Saturation 52 % (15-50); Total Iron Binding Capacity 264 mcg/dL (228-428); Unsaturated Iron Binding 128 ug/dL
[2025-07-27 17:07] LABS: Ferritin 187 ng/mL (20-250)
[2025-07-27 17:13] LABS: Folate 7.6 ng/mL (> or = 4.0); Vitamin B12 568 pg/mL (200-900)
== END 2025-07-27 13:08 | disposition home or self-care (01) ==
LOC: HO.HMGCLDS 13:07
PROVIDERS: PCP Nurse Practitioner Family; Visit Provider Nurse Practitioner Family
DX: D64.9 Anemia, unspecified (principal)
CPT/HCPCS: 36415; 82607; 82728; 82746; 83540; 83615; 85025; 85045

== ENCOUNTER 2025-08-29 14:14 | Outpatient (REF) | payer OTHER, SELFPAY ==
--- NOTE | ~2025-08-29 | CT_ITS ---
EXAMINATION: CT CHEST WITH IV CONTRAST INDICATION: R59.0 - Localized enlarged lymph nodes COMPARISON: Howard is made with the prior examination dated 03/08/2025. TECHNIQUE: Helical CT scan of the chest was performed following administration of intravenous contrast. Coronal and sagittal reformatted images were generated and reviewed. This CT exam was performed with one or more of the following dose reduction techniques: automated exposure control, adjustment of the mA and/or kV according to patient size, use of iterative reconstruction technique. DLP: 173 mGy-cm CHEST: THYROID: The thyroid is unremarkable. LUNGS: There is a 29 x 18 mm semisolid nodule in the right upper lobe with a 6 mm solid component (series 4, images [id number]). No additional suspicious pulmonary nodules are identified. MEDIASTINUM: There is no mediastinal lymphadenopathy. DEENA: There is a 12 mm right hilar lymph node. No left hilar lymphadenopathy. CARDIOVASCULATURE: The heart is normal in size. There is no pericardial effusion. The thoracic aorta is normal in caliber. DEGREE OF CORONARY CALCIFICATION: mild PLEURA: There is no pleural effusion. No pneumothorax. MAIN AIRWAYS: The mainstem bronchi and proximal branches are patent. AXILLA: There is no axillary lymphadenopathy. BONES AND SOFT TISSUES: Unremarkable UPPER ABDOMEN: The visualized portions of the liver, spleen, and adrenals are unremarkable. CT/CT chest w IV con IMPRESSION: 29 x 18 mm semisolid nodule in the right upper lobe with a 6 mm solid component. Findings are suspicious for malignancy. 12 mm right hilar lymph node. Thoracic surgery consult is recommended. PET/CT scan should also be considered. Findings were communicated to Lara Zelaya NP by secure text message on 08/29/2025 at 2:54 PM and acknowledged at 2:58 PM. Electronically signed by: Milo Harper MD 08/29/2025 02:59 PM [facility] [place]
[2025-08-29] MEDS: iohexoL 350 MG/ML 100 ML INFUS..BTL IV (14:39)
== END 2025-08-29 14:15 | disposition home or self-care (01) ==
LOC: HO.CT 14:14
PROVIDERS: PCP Nurse Practitioner Family; Visit Provider Nurse Practitioner Family
DX: R59.0 Localized enlarged lymph nodes (principal)
CPT/HCPCS: 71260; Q9967

== ENCOUNTER → 2025-08-29 14:16 | Outpatient (BNV) | payer OTHER, SELFPAY | PROVIDERS: PCP Nurse Practitioner Family; Visit Provider Radiology Diagnostic Radiology | DX: R91.1 Solitary pulmonary nodule (principal) | CPT/HCPCS: 71260 ==